=== PATIENT | male | born 1940 | race Caucasian/White ===

== ENCOUNTER → 2019-02-20 11:00 | Outpatient (CLI) | payer MEDICARE, OTHER, SELFPAY ==
[2019-02-20 12:25] LABS: Absolute Lymphocyte Count 1.28 X10^3/uL (0.83-4.51); Absolute Neutrophil Count 4.1 X10^3/uL (2.0-7.7); Basophil# 0.01 X10^3/uL; Basophil% 0.1 % (0-1); Eosinophil# 1.13 X10^3/uL; Eosinophils% 15.4 % (0-5); Hematocrit 45.5 % (40-54); Hemoglobin 15.6 g/dL (13.0-16.5); Lymphocyte # 1.28 X10^3/ul (4.0); Lymphocyte % 17.5 % (19-41); Mean Corp Hgb Conc 34.3 g/dL (32-36); Mean Corpuscular Hgb 29.4 pg (27.0-32.0); Mean Corpuscular Volume 85.8 fL (80-94); Mean Platelet Vol. 9.7 fl (6.2-12.0); Monocyte% 10.9 % (0-10); NRBC Flagged by Analyzer 0 % (0-5); Neutrophil # 4.07 X10^3/uL (2.7-7.7); Neutrophil % 55.7 % (47-70); Platelet Count 244 K/mm3 (150-450); RBC Distribution Width CV 12.8 % (11.6-14.6); RBC Distribution Width SD 39.8 fl (35.1-43.9); White Blood Count 7.3 K/mm3 (4.4-11.0)
[2019-02-20 13:09] LABS: Anion Gap 5 (5-15); BUN 18 mg/dL (7-18); BUN/Creat Ratio 16.5 RATIO (10-20); Calcium,Total 9.9 mg/dL (8.5-10.1); Chloride 105 mmol/L (98-107); Creatinine, Serum 1.09 mg/dL (0.70-1.30); EST Glomerular Filtration Rate 69 mL/min (>60); Est Glom Filt Rate - Afr Amer 84 mL/min (>60); Glucose 100 mg/dL (74-106); Sodium Level 139 mmol/L (136-145)
[2019-02-23 06:07] LABS: QNTFERON TB Mitogen Value > 10.00 IU/mL (.); QNTFERON TB Nil Value 0.02 IU/mL (.); QNTFERON TB1+ Ag Value 0.02 IU/mL (.); QNTFERON TB2+ Ag Value 0.02 IU/mL (.)
[2019-02-23 12:21] LABS: QNTIFERON TB Positive Criteria Negative (Negative)
== END ==
PROVIDERS: Referring Provider Dermatology Pediatric Dermatology; Visit Provider Dermatology Pediatric Dermatology
DX: L30.9 Dermatitis, unspecified (principal); D48.5 Neoplasm of uncertain behavior of skin; R58 Hemorrhage, not elsewhere classified; L53.8 Other specified erythematous conditions
CPT/HCPCS: 36415; 80048; 85025; 86480

== ENCOUNTER 2019-12-18 16:38 | Inpatient (IN) | payer MEDICARE, OTHER, SELFPAY ==
[2019-12-18 16:40] VITALS: BP 127/67; PULSE 90; RESP 16; TEMP 39.1; O2SAT 99; BMI 25.2
[2019-12-18 20:03] VITALS: BP 133/72; PULSE 81; RESP 15; O2SAT 97
--- NOTE | 2019-12-18 20:39 | CT_ITS ---
STUDY: CT BRAIN WITHOUT CONTRAST REASON FOR EXAM: Male, 79 years old. WEAKNESS/UNABLE TO GET OUT OF CHAIR RADIATION DOSAGE (If Supplied By Facility): CTDIvol = ( 44.99 ) mGy, DLP = ( 863.60 ) mGycm TECHNIQUE: Transaxial CT imaging of the brain was performed without administration of intravenous contrast material. Individualized dose optimization techniques were used for this CT. COMPARISON: No relevant priors. FINDINGS: Normal soft tissue structures. Normal calvarium. There is moderate cerebral atrophy with widening of the extra-axial spaces and ventricular dilatation. There are areas of decreased attenuation within the white matter tracts of the supratentorial brain, consistent with microvascular disease changes. Normal basal ganglia and thalami. Normal brainstem. Normal cerebellum. There is no intracranial hemorrhage. There are no findings of an acute ischemic infarction. Normal visualized paranasal sinuses. CT/Brain/Head without Contrast IMPRESSION: Chronic involutional changes of the brain. Electronically Signed: Jerod Marcial MD at 21:32 EDT , Service support ,
--- NOTE | 2019-12-18 20:39 | EKG12_ITS ---
Test Reason : LOWER EXTREMITY Blood Pressure : / mmHG Vent. Rate : 068 BPM Atrial Rate : 068 BPM P-R Int : 122 ms QRS Dur : 116 ms QT Int : 376 ms P-R-T Axes : -06 -61 043 degrees QTc Int : 399 ms Normal sinus rhythm Left axis deviation Incomplete left bundle branch block Abnormal ECG Confirmed by PAYTON GERARDO, SORAYA ([id number]), graphic editor ANJALI ESCOTO ([id number]) on 12/20/2019 12:38:55 PM Referred By: Lesly Judd Confirmed By:SORAYA CAIN MD
[2019-12-18 21:01] LABS: Absolute Lymphocyte Count 1.11 X10^3/uL (0.83-4.51); Absolute Neutrophil Count 13.7 X10^3/uL (2.0-7.7); Basophil# 0.02 X10^3/uL; Basophil% 0.1 % (0-1); Hemoglobin 13.7 g/dL (13.0-16.5); Lymphocyte # 1.11 X10^3/ul (4.0); Lymphocyte % 6.6 % (19-41); Mean Corp Hgb Conc 33.4 g/dL (32-36); Mean Corpuscular Hgb 28.4 pg (27.0-32.0); Mean Corpuscular Volume 85.1 fL (80-94); Mean Platelet Vol. 10.1 fl (6.2-12.0); Monocyte# 1.85 X10^3/uL; NRBC Flagged by Analyzer 0 % (0-5); Neutrophil # 13.72 X10^3/uL (2.7-7.7); Neutrophil % 81.7 % (47-70); POSITIVE DIFFERENTIAL YES; Platelet Count 282 K/mm3 (150-450); RBC Distribution Width CV 12.3 % (11.6-14.6); RBC Distribution Width SD 38.2 fl (35.1-43.9); Red Blood Count 4.82 M/mm3 (4.6-6.2); White Blood Count 16.8 K/mm3 (4.4-11.0)
[2019-12-18 21:04] LABS: Differential Indicated SCAN CRITERIA MET
--- NOTE | 2019-12-18 21:13 | RAD_ITS ---
STUDY: X-RAY CHEST REASON FOR EXAM: Male, 79 years old. WEAKNESS TECHNIQUE: Single AP portable view of the chest. COMPARISON: None. 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 There are ill-defined hazy infiltrates of the lower lung mcrae. There is no demonstrated pleural abnormality. Normal size heart. Normal mediastinum and manuel. Normal visualized pulmonary arteries. There are calcified plaques of the aortic arch. There are diffuse degenerative changes of the visualized thoracic spine. There are degenerative changes of the left shoulder joint. There is no demonstrated abnormality of the visualized soft tissue structures of the upper abdomen. RAD/Chest 1 View (Portable) IMPRESSION: Ill-defined hazy infiltrates of the lung bases. Calcified plaques of the aortic arch. Diffuse generative changes of the thoracic spine. Electronically Signed: Jerod Marcial MD at 21:39 EDT , Service support ,
[2019-12-18 21:19] LABS: ALB/GLOB Ratio 0.7 RATIO (0.9-2.4); AST(SGOT) 29 U/L (15-37); Alanine Aminotransfer ALT/SGPT 23 U/L (16-61); Albumin, Serum 3.1 g/dL (3.2-5.0); Alkaline Phosphatase 90 U/L (45-117); Anion Gap 7 (5-15); BUN 23 mg/dL (7-18); Chloride 102 mmol/L (98-107); Creatinine, Serum 1.28 mg/dL (0.70-1.30); EST Glomerular Filtration Rate 57 mL/min (>60); Est Glom Filt Rate - Afr Amer 69 mL/min (>60); Estimated Creatinine Clearance 47.53 ml/min; Globulin 4.7 g/dL (2.2-4.2); Glucose 117 mg/dL (74-106); Lactic Acid 1.6 mmol/L (0.4-1.9); Potassium 3.4 mmol/L (3.5-5.1); Protein, Total 7.8 g/dL (6.4-8.2); Sodium Level 137 mmol/L (136-145)
[2019-12-18 21:30] LABS: Differential Comment SCANNED
[2019-12-18 21:50] LABS: Bacteria 0 SEEN /hpf (None Seen); Mucous, Urine 0 SEEN /hpf (<or=2+); Squamous Epithelial Cells - UA 0 SEEN /hpf (0-5); White Blood Cells 0 SEEN /hpf (0-5)
[2019-12-18 21:52] LABS: Color, Urine Yellow (Yellow); Urine Clarity Sl Cloudy (Clear)
[2019-12-18 21:55] LABS: Glucose, Dipstick Normal (Normal); Ketone-Dipstick Negative (Negative); Leukocyte Esterase-Dipstick Negative /ul (Negative); Nitrite-Dipstick Negative (Negative); Occult Blood-Urine 50 /ul (Negative); Protein-Dipstick 30 mg/dl (Negative); Urine Bilirubin Dipstick Negative (Negative); Urine Urobilinogen 4 mg/dl (Normal)
[2019-12-18 21:56] LABS: Red Blood Cells-Urine 0-5 SEEN /hpf (0-5)
--- NOTE | 2019-12-18 23:15 | ED.VISSUMM ---
- ER Visit Summary Date of Service: 12/18/19 Chief Complaint: Fever and weakness History of Present Illness: The patient is a 79 M who presents with fever and weakness that began today. Family tried to get the patient up out of her chair today and he was unable to stand. Patient states his left leg feels weaker than his right. Patient states this is worse with attempted ambulation. Patient admits to subjective fevers at home. Family did not take patient's temperature. Patient admits to some dysuria. Patient denies any nausea or vomiting. Patient denies any chest pain or shortness of breath. Patient denies any cough. Physical Examination: Vital signs are stable. Patient is febrile here with a temperature 102.4. Patient is in no acute distress. Oral mucosa is pink and moist. Neck is supple. Trachea is midline. There is no JVD. Heart was regular rate and rhythm. Lungs were diminished in the bases bilaterally. There is adequate respiratory effort noted. Abdomen is soft. Bowel sounds are normal. There is no tenderness. Cranial nerves II through XII are intact. There are no focal motor or sensory deficits. Test Results: CBC shows a leukocytosis of 16.8. Basic metabolic profile showed a mild hypokalemia of 3.4. Urinalysis does not show any evidence of urinary tract infection. Lactate was normal at 1.6. Troponin was normal at less than 0.015. EKG showed normal sinus rhythm with a rate of 68. There are no acute ST or T wave changes. Chest x-ray shows ill-defined hazy infiltrates at the lung bases bilaterally. CT scan of the brain was obtained. There are chronic changes. These were interpreted by the radiologist and reviewed by myself. Emergency Department Course and Treatment: Patient was given Tylenol here. Patient was started on Rocephin and Zithromax. Blood cultures were obtained prior to antibiotics. Patient is agreeable for admission. COVID swab was obtained and is pending. Case was discussed with the hospitalist. She will admit the patient however she wants to wait until the COVID swab is returned to determine the appropriate place for the patient. Patient and family understood and were agreeable with the plan. All questions were answered. Disposition: Admit to hospital Impression: 1. Pneumonia 2. Leukocytosis This note was generated with [employer] software. It may contain incorrect words, spelling, and punctuation that were not noted in review of the chart prior to signing ED Disposition - Plan for ED Patient: Disposition: Acute Care Hospital [facility] Diagnosis: Pneumonia, Leukocytosis Referrals: Care Physician,No Primary [Primary Care Provider] -
[2019-12-18 23:21] VITALS: BP 119/58; PULSE 72; RESP 15; O2SAT 98
--- NOTE | 2019-12-18 23:30 | HP.PCM_ITS ---
History of Present Illness Date of Admission: 12/18/19 Chief Complaint: weakness The patient is a 79 year old M with no significant past medical history. He was admitted through the ED on 12/18/2019 with a complaint of weakness. Patient has been undergoing physical therapy for weakness at home. however states that he has recently become progressively weak and could not get out of his chair today. He admitted to some chills but denied any fever, blurred vision, lightheadedness or dizziness, chest pain, palpitations, burning with urination, nausea vomiting. He also denied any fever. His brought him into the hospital because his weakness has been getting worse. In the ED, vitals were significant for temperature of 102.4 Fahrenheit with blood pressure 119/58, pulse rate of 72 and respiratory rate of 15. He was saturating at 98% on room air. Chemistry was significant for potassium of 3.4 with total bilirubin of 1.1. Initial troponin was less than 0.015. CBC showed WBC of 16.8 and hemoglobin of 13.7 with platelets of 282. Chest x-ray showed ill-defined hazy opacities of the lung bases and calcified plaques of the aortic arch. CT of the brain showed chronic involutional changes of the brain. He has been admitted to be managed for sepsis due to community-acquired pneumonia. COVID test was negative. Past Medical History Allergies No Known Allergies Allergy (Verified 12/18/19 16:44) Home Medications: Ambulatory Orders Medication Instructions Recorded Aspirin 81 mg PO DAILY 12/19/19 Surgical History: no surgical history Psychiatric History: No pertinent psych hx Lives: Spouse/ Significant Other Smoking Status: Never smoker Tobacco Use: Non-smoker Alcohol: None Drugs: None - *Family History Maternal History Items: Cancer Paternal History Items: No pertinent history Review of Systems Constitutional: Reports: Chills, Malaise, Weakness, Fatigue. Denies: Anorexia, Fever, Weight Change Eyes: Denies: Blurred vision HEENT: Denies: Head Aches, Sinus Congestion, Sinus Drainage Cardiovascular: Denies: Chest Pain, Chest Pressure, Light Headedness, Orthopnea, Palpitations, Syncope Respiratory: Denies: Cough, Shortness of Breath, Shortness of breath at rest, Shortness of breath upon exertion, Sputum production, Wheezing Gastrointestinal: Denies: Abdominal Pain, Nausea, Vomiting Genitourinary: Denies: Dysuria Musculoskeletal: Denies: Joint Pain, Joint Tenderness Skin: Denies: Rash, Wounds Neurological: Denies: Numbness, Tingling, Focal weakness Psychiatric: Denies: Anxiety, Depression, Homicidal Ideations, Suicidal Ideations Hematologic/ Lymphatic: Denies: Easy Bruising, Easy Bleeding VTE Information - Inpt Only VTE Present on Admission: No VTE Pharm Prophylaxis ordered?: Yes Patient Problems: Active and Suspected Problems Pneumonia (Acute) Leukocytosis (Acute) - Physical Exam Vitals/I&O's: Vital Signs Temp Pulse Resp BP Pulse Ox 102.4 F H 72 15 119/58 L 98 12/18/19 16:40 12/18/19 23:21 12/18/19 23:21 12/18/19 23:21 12/18/19 23:21 Oxygen Delivery Method Room Air Weight: 176 lb 5.917 oz Body Mass Index (BMI) 25.2 General: Alert, Oriented x3, Cooperative, No apparent distress HEENT: Atraumatic, PERRLA, EOMI, Normocephalic Oral: Dry Mucosa Neck: Supple, No JVD, Negative Carotid Bruits Lungs: - - decreased breath sounds bibasally, no few crackles bibasally, no wheezes. Cardiovascular: Regular rate, Regular Rhythm, Normal S1, Normal S2, No murmurs Abdomen: Bowel Sounds Present, Soft, Non Tender, Non-Distended, No Hepato- splenomegaly Extremities: No clubbing, No cyanosis, No edema, Capillary Refill Less than 3 Seconds Skin: No rashes, No breakdown Musculoskeletal: No Tenderness to Palpation of Joints or Extremities Lymphatic: No Cervical, Supraclavicular, or Inguinal Adenopathy Neurological: Cranial nerves II-XII grossly intact, Neuro grossly intact, Motor Exam 5/5 strength throughout Psych/Mental Status: Normal Affect, Appropriate, Alert and oriented to time, place, person, mood and affect Laboratory Results 12/18/19 18:35: Urine Color Yellow, Urine Clarity Sl Cloudy, Urine pH 6.0, Ur Specific [place] 1.020, Urine Protein 30 H, Urine Glucose (UA) Normal, Urine Ketones Negative, Urine Occult Blood 50 H, Urine Nitrite Negative, Urine Bilirubin Negative, Urine Urobilinogen 4 H, Ur Leukocyte Esterase Negative, Urine RBC 0-5 SEEN, Urine WBC 0 SEEN, Ur Squamous Epith Cells 0 SEEN, Urine Bacteria 0 SEEN, Urine Mucus 0 SEEN 12/18/19 18:40: WBC 16.8 H, RBC 4.82, Hgb 13.7, Hct 41.0, MCV 85.1, MCH 28.4, MCHC 33.4, RDW Std Deviation 38.2, RDW Coeff of Colleen 12.3, Plt Count 282, MPV 10.1, Immature Gran % (Auto) 0.600, Neut % (Auto) 81.7 H, Lymph % (Auto) 6.6 L, [place] % (Auto) 11.0 H, Eos % (Auto) 0.0, Baso % (Auto) 0.1, Absolute Neuts (auto) 13.7 H, Absolute Lymphs (auto) 1.11, Nucleated RBC % 0, Differential Comment SCANNED, Diff Path Review September12/18/19 18:40: Sodium 137, Potassium 3.4 L, Chloride 102, Carbon Dioxide 28.0, Anion Gap 7, BUN 23 H, Creatinine 1.28, Estim Creat Clear Calc 47.53, Est GFR (MDRD) Af Amer 69, Est GFR (MDRD) Non-Af 57 L, BUN/Creatinine Ratio 18.0, Glucose 117 H, Calcium 10.0, Total Bilirubin 1.10 H, AST 29, ALT 23, Alkaline Phosphatase 90, Troponin I < 0.015, Total Protein 7.8, Albumin 3.1 L, Globulin 4.7 H, Albumin/Globulin Ratio 0.7 L 12/18/19 18:40: Lactic Acid 1.[address] 12/18/19 20:39 IMPRESSION: Chronic involutional changes of the brain. Electronically Signed: Jerod Marcial MD at 21:32 EDT , Service support , Chest X-Ray 12/18/19 21:13 IMPRESSION: Ill-defined hazy infiltrates of the lung bases. Calcified plaques of the aortic arch. Diffuse generative changes of the thoracic spine. Electronically Signed: Jerod Marcial MD at 21:39 EDT , Service support , Current Medications Azithromycin 500 mg/ Dextrose 255 mls @ 250 mls/hr IV X1 ONE Stop: 12/19/19 00:12 Ceftriaxone Sodium (Rocephin) 1 gm in 50 mls @ 100 mls/hr IV X1 ONE Stop: 12/18/19 23:40 Assessment/Plan All Active Problems Pneumonia (Acute) Leukocytosis (Acute) 79 y/o admitted with a complaint of weakness and found to have leucocytosis and bilateral hazy opacities on CXR 1. Sepsis due to community acquired pneumonia * SIRS criteria is 2/4-leukocytosis and fever. * Chest x-ray shows bilateral hazy opacities. * COVID was negative * Check urine for strep and Legionella. Check sputum culture if patient starts producing sputum. * Was started on IV ceftriaxone and azithromycin in the ED. Will continue. Tylenol as needed for fever. * Hydrate gently with IV fluid normal saline at 150 cc/h * 2. Community-acquired pneumonia: As under 1. 3. Hypokalemia: Potassium is 3.4. Will replace and monitor. 4. Debility: Has been having physical therapy at home. Consult PT/OT. Fall precautions. DVT prophylaxis: Lovenox CODE STATUS: Full code * Patient counseled extensively about different types of CODE STATUS including full code, DNR CCA and DNR CCA. Patient elects to be full code. * Total [id number]-ep-[id number] time 16 minutes. Inpatient E&M: 69276 Init Hosp L3 Procedures: 57416 Advncd Care Plan 30 Min
[2019-12-18] MEDS: Acetaminophen 500 MG Tablet 1000 MG PO (23:35)
[2019-12-18 23:37] VITALS: BP 117/55; PULSE 82; RESP 16; TEMP 38; O2SAT 96
[2019-12-19] VITALS (10 sets, daily range): BP systolic 95–126; BP diastolic 48–65; PULSE 60–83; RESP 13–23; TEMP 36.6–38.2; O2SAT 95–99; BMI 24.6; BMI 25.3
[2019-12-19] MEDS: Ceftriaxone 1 GM/50 ML BAG IV (00:18)
[2019-12-19 00:37] LABS: Probe Check PASS; Specimen Processing Control PASS
[2019-12-19] MEDS: 0.9% Normal Saline 1,000 ML 150 ML IV (03:13)
[2019-12-19 05:35] LABS: Absolute Lymphocyte Count 1.33 X10^3/uL (0.83-4.51); Absolute Neutrophil Count 13.7 X10^3/uL (2.0-7.7); Basophil# 0.02 X10^3/uL; Basophil% 0.1 % (0-1); Differential Indicated SCAN CRITERIA MET; Eosinophil# 0.01 X10^3/uL; Eosinophils% 0.1 % (0-5); Hematocrit 37.4 % (40-54); Hemoglobin 12.4 g/dL (13.0-16.5); Lymphocyte # 1.33 X10^3/ul (4.0); Lymphocyte % 7.9 % (19-41); Mean Corp Hgb Conc 33.2 g/dL (32-36); Mean Corpuscular Hgb 28.2 pg (27.0-32.0); Mean Corpuscular Volume 85.2 fL (80-94); Mean Platelet Vol. 8.8 fl (6.2-12.0); Monocyte# 1.77 X10^3/uL; Monocyte% 10.5 % (0-10); NRBC Flagged by Analyzer 0 % (0-5); Neutrophil # 13.65 X10^3/uL (2.7-7.7); POSITIVE DIFFERENTIAL YES; Platelet Count 265 K/mm3 (150-450); RBC Distribution Width CV 12.6 % (11.6-14.6); Red Blood Count 4.39 M/mm3 (4.6-6.2); White Blood Count 16.9 K/mm3 (4.4-11.0)
[2019-12-19 05:56] LABS: Differential Comment SCANNED
[2019-12-19 06:07] LABS: Anion Gap 4 (5-15); BUN 23 mg/dL (7-18); BUN/Creat Ratio 20.7 RATIO (10-20); Calcium,Total 9.1 mg/dL (8.5-10.1); Chloride 104 mmol/L (98-107); Creatinine, Serum 1.11 mg/dL (0.70-1.30); EST Glomerular Filtration Rate 68 mL/min (>60); Est Glom Filt Rate - Afr Amer 82 mL/min (>60); Glucose 108 mg/dL (74-106); Potassium 3.1 mmol/L (3.5-5.1); Sodium Level 137 mmol/L (136-145)
--- NOTE | 2019-12-19 07:50 | PCM.PROGNOTE ---
Patient Problems: Active and Suspected Problems Pneumonia (Acute) Leukocytosis (Acute) Subjective: Chief complaint: Follow-up after admission for sepsis due to community-acquired pneumonia. Patient seen and examined. No acute events overnight. Today, he is feeling better. Denied cough or sputum production. This morning, is afebrile, blood pressure is borderline but he is asymptomatic, pulse ox is 97% on room air. - Physical Exam Vitals/I&O's: Vital Signs Temp Pulse Resp BP Pulse Ox 98.3 F 64 18 95/48 L 97 12/19/19 02:25 12/19/19 04:21 12/19/19 02:25 12/19/19 02:25 12/19/19 02:25 Oxygen Delivery Method Room Air Weight: 171 lb 8 oz Body Mass Index (BMI) 24.6 Intake and Output for Last 24 Hours 12/17/19 12/18/19 12/19/19 23:59 23:59 23:59 Intake Total 785 / 785 Balance 785 / 785 General: Alert, Oriented x3, Cooperative HEENT: Atraumatic, PERRLA, EOMI, Normocephalic Oral: Moist Mucosa, No Gingival or Mucosal Lesions/ Ulcerations Neck: Supple, No JVD, Negative Carotid Bruits, Trachea Midline, Thyroid Normal Size and Texture Lungs: Clear to auscultation, Normal air movement, No rhonchi, No wheeze, No rales, Diminished Cardiovascular: Regular rate, Regular Rhythm, Normal S1, Normal S2, PMI Normal Abdomen: Bowel Sounds Present, Soft, Non Tender, Non-Distended, No Hepato-splenomegaly Extremities: No clubbing, No cyanosis, No edema Skin: No rashes, No breakdown Lymphatic: No Cervical, Supraclavicular, or Inguinal Adenopathy Neurological: Cranial nerves II-XII grossly intact, Neuro grossly intact Psych/Mental Status: Normal Affect, Appropriate, Alert and oriented to time, place, person, mood and affect Laboratory Results 12/18/19 18:35: Urine Color Yellow, Urine Clarity Sl Cloudy, Urine pH 6.0, Ur Specific [place] 1.020, Urine Protein 30 H, Urine Glucose (UA) Normal, Urine Ketones Negative, Urine Occult Blood 50 H, Urine Nitrite Negative, Urine Bilirubin Negative, Urine Urobilinogen 4 H, Ur Leukocyte Esterase Negative, Urine RBC 0-5 SEEN, Urine WBC 0 SEEN, Ur Squamous Epith Cells 0 SEEN, Urine Bacteria 0 SEEN, Urine Mucus 0 SEEN 12/18/19 18:40: WBC 16.8 H, RBC 4.82, Hgb 13.7, Hct 41.0, MCV 85.1, MCH 28.4, MCHC 33.4, RDW Std Deviation 38.2, RDW Coeff of Colleen 12.3, Plt Count 282, MPV 10.1, Immature Gran % (Auto) 0.600, Neut % (Auto) 81.7 H, Lymph % (Auto) 6.6 L, [place] % (Auto) 11.0 H, Eos % (Auto) 0.0, Baso % (Auto) 0.1, Absolute Neuts (auto) 13.7 H, Absolute Lymphs (auto) 1.11, Nucleated RBC % 0, Differential Comment SCANNED, Diff Path Review September12/18/19 18:40: Sodium 137, Potassium 3.4 L, Chloride 102, Carbon Dioxide 28.0, Anion Gap 7, BUN 23 H, Creatinine 1.28, Estim Creat Clear Calc 47.53, Est GFR (MDRD) Af Amer 69, Est GFR (MDRD) Non-Af 57 L, BUN/Creatinine Ratio 18.0, Glucose 117 H, Calcium 10.0, Total Bilirubin 1.10 H, AST 29, ALT 23, Alkaline Phosphatase 90, Troponin I < 0.015, Total Protein 7.8, Albumin 3.1 L, Globulin 4.7 H, Albumin/Globulin Ratio 0.7 L 12/18/19 18:40: Lactic Acid 1.6 12/18/19 23:35: COVID-19 (LI) Negative 12/19/19 05:28: WBC 16.9 H, RBC 4.39 L, Hgb 12.4 L, Hct 37.4 L, MCV 85.2, MCH 28.2, MCHC 33.2, RDW Std Deviation 39.0, RDW Coeff of [place]leen 12.6, Plt Count 265, MPV 8.8, Immature Gran % (Auto) 0.400, Neut % (Auto) 81.0 H, Lymph % (Auto) 7.9 L, [place] % (Auto) 10.5 H, Eos % (Auto) 0.1, Baso % (Auto) 0.1, Absolute Neuts (auto) 13.7 H, Absolute Lymphs (auto) 1.33, Nucleated RBC % 0, Differential Comment SCANNED, Diff Path Review September foll 12/19/19 05:28: Sodium 137, Potassium 3.1 L, Chloride 104, Carbon Dioxide 29.0, Anion Gap 4 L, BUN 23 H, Creatinine 1.11, Estim Creat Clear Calc 54.80, Est GFR (MDRD) Af Amer 82, Est GFR (MDRD) Non-Af 68, BUN/Creatinine Ratio 20.7 H, Glucose 108 H, Calcium 9.1 Clinical Impression(s) from Imaging Studies Brain CT 12/18/19 20:39 IMPRESSION: Chronic involutional changes of the brain. Electronically Signed: Jerod Marcial MD at 21:32 EDT , Service support , Chest X-Ray 12/18/19 21:13 IMPRESSION: Ill-defined hazy infiltrates of the lung bases. Calcified plaques of the aortic arch. Diffuse generative changes of the thoracic spine. Electronically Signed: Jerod Marcial MD at 21:39 EDT , Service support , Current Medications Acetaminophen (Tylenol) 650 mg PO Q6H PRN PRN PRN Reason: Pain Score 1-10/Temp > 100.7 F Aspirin (Aspirin, Baby) 81 mg PO DAILY JUSTIN Calamine/Phenol (Calmoseptine Ointment) 1 applic TOPICAL BID JUSTIN; Protocol Dextrose (D50w Syringe) 0 gm IV X1 PRN; Protocol PRN Reason: Hypoglycemia Glucagon () 1 mg IM .X1 PRN PRN Reason: Hypoglycemia Sodium Chloride () 1,000 mls @ 100 mls/hr IV .Q10H JUSTIN Stop: 12/19/19 12:28 Last Admin: 12/19/19 03:13 Dose: 150 mls/hr Documented by: Ceftriaxone Sodium 2 gm/ (Sodium Chloride) 50 mls @ 100 mls/hr IV Q24@2200 JUSTIN Azithromycin 500 mg/ Dextrose 255 mls @ 250 mls/hr IV Q24@2200 JUSTIN Sodium Chloride () 250 mls @ 15 mls/hr IV .[id number] PRN PRN Reason: Saline Flush Sodium Chloride () 250 mls @ 15 mls/hr IV .[id number] PRN PRN Reason: Additional IVPB Infusion Potassium Chloride () 10 meq in 100 mls @ 100 mls/hr IV BOLUS Q1H JUSTIN Stop: 12/19/19 11:29 Ondansetron HCl (Zofran) 4 mg IV Q8H PRN PRN PRN Reason: NAUSEA/VOMITING Oxycodone HCl (Oxyir) 10 mg PO Q4H PRN PRN PRN Reason: Pain Score 4-10/10 Sodium Chloride () 10 - 40 ml IV UD PRN PRN Reason: SALINE FLUSH Medical Necessity - Tobacco Use Smoking Status: Never smoker Tobacco Use: Non-smoker Assessment/Plan All Active Problems Pneumonia (Acute) Leukocytosis (Acute) This is an 79 years old male patient presented to the emergency room because of fever and weakness, found to have minimal infiltrate on lung bases consistent with pneumonia complicated by sepsis. #1 acute community-acquired pneumonia/sepsis: He is on IV Rocephin and Zithromax. Initially, he had a spike of fever, no fever this morning. He does have leukocytosis, WBC remain the most the same. EKG revealed no acute segment changes. Troponin was negative. CT scan brain showed no acute findings. Blood cultures pending. COVID-19 PCR was negative. Patient complains of right forearm pain due to muscle strain during physical therapy at home. Plan to continue same treatment, repeat CBC tomorrow morning, PT OT evaluation and treatment. #2 hypokalemia: Admission potassium was 3.4, still 3.1 today. Patient received potassium supplement this morning. Plan to check serum magnesium, repeat serum potassium tomorrow morning. #3 debility: PT OT evaluation and treatment. #4 DVT prophylaxis: Subcu Lovenox. This note was generated with [employer] dictation software. It may contain incorrect words, spelling, and punctuation that were not noted in checking the note before signing. Inpatient E&M: 60891 Subs Hosp L2
[2019-12-19 08:16] LABS: Magnesium 1.9 mg/dL (1.6-2.6)
[2019-12-19] MEDS: 0.9% Normal Saline 1,000 ML 50 ML IV (08:36)
[2019-12-19] MEDS: Potassium Chloride 10mEq/100mL 10 MEQ/100 ML IV.SOLN. 100 MEQ IV BOLUS ×4 (08:36→11:40)
[2019-12-19] MEDS: Aspirin 81 MG TAB.CHEW PO (08:36)
[2019-12-19] MEDS: Menthol/Lanolin/Calamine/Znox 113 GM Tube 1 APPLIC TOPICAL ×2 (09:40→22:36)
[2019-12-19] MEDS: Enoxaparin 40 MG/0.4 ML Syringe SC (09:41)
[2019-12-19 12:19] LABS: Pathologist Review Reviewed
[2019-12-19 12:23] LABS: Pathologist Review Reviewed
--- NOTE | 2019-12-19 13:51 | CASEMGMT ---
SKYLAR AMADO assessment: Face to Face with patient for initial transition planning/care coordination assessment. SKYLAR AMADO introduced self and role at [facility], pt voices understanding and consents to assessment at this time. Pt is sitting up in bed in no distress at this time. Pt is A/Ox4 at this time and answers all questions appropriately at this time. Care providers, pharmacy, and demographics verified at this time. Presentation: weakness, family unable to get pt out of chair-pt w/ left ankle weakness since fracture in Apr 2019-also c/o constipation Admitting dx: CAP PCP: Natan Swan [facility] Specialists: Pt states no specialists. Preferred Pharmacy: Pt states no preferred pharmacy and agrees to list [facility] retail pharmacy, just in case needed. Insurance: [facility] A/B, [employer] Prescription Benefit: Yes Living Will/HPOA: Pt states has a trust set up but unsure if he has LW/HPOA included in that at this time. LNOK: Clementine Chand, ; Ashutosh Chand, brother Living Arrangements: Pt states lives with in 1 story home with some steps and states no concerns at home at this time. Pt states has had some recent weakness but family has been assisting. Transportation: Pt states drives self and states no transportation concerns at this time. DME/HHC: Pt states has a cane, walker, and shower chair. Pt states no need for any further DME at this time. Pt states is currently going to OP therapy for weakness. Pt states no hx of HHC or SNF in the past. Pt states no concerns with going home at time of discharge. Pt states is retired. Pt states does not smoke cigarettes or drink ETOH. Pt states no further concerns/needs at this time. CM to follow for PT/OT evals and any further discharge planning/needs. Advised pt to ask for CM if any further questions/concerns/needs arise, voices understanding. Pt Goal: Home Plan: [place] SKYLAR AMADO
--- NOTE | 2019-12-19 16:02 | ECHOD_ITS ---
Reason For Study: MURMUR Procedure This was a 2D Doppler, Color Flow transthoracic echocardiogram. Exam performed portable in patient room. Left Ventricle Mildly dilated left ventricle. The estimated ejection fraction is 55 %. Stage 2 diastolic dysfunction. There is mild global hypokinesis of the left ventricle. Right Ventricle Normal size and thickness. Normal systolic function. Atria The left atrium is mildly enlarged. Normal right atrium. Normal atrial septum. Bubble contrast study negative for right to left interatrial shunt. Mitral Valve Mild diffuse mitral valve thickening. Tricuspid Valve Normal tricuspid valve. Mild to moderate (1-2+) tricuspid valve insufficiency. Right ventricular systolic pressure estimated to be 45 mmHg. Mild pulmonary hypertension. Aortic Valve Trisinus/trileaflet aortic valve. Mild diffuse aortic valve thickening. Pulmonic Valve Normal pulmonic valve. Trivial pulmonic valve insufficiency. Great Vessels Normal aortic root. Normal arch. Normal inferior vena cava. Inferior vena cava collapse with sniff. Pericardium/Pleural No pericardial effusion. Medication Performed a rapid injection of agitated mix of 9 cc saline and 1cc air to assess for atrial septal defect. MMode/2D Measurements & Calculations LVIDd: 4.7 cm IVSd: 1.1 cm Ao root diam: 3.5 cm LVIDs: 3.7 cm LVPWd: 0.97 cm RVDd: 3.2 cm FS: 20.9 % LAV(MOD-bp): 81.0 ml LA A4 area: 23.0 cm2 LA dimension(2D): 3.8 cm LAV(MOD-bp) Indexed: 41.5 ml/m2 LAV(MOD-sp2): 72.5 ml LAV(MOD-sp4): 78.6 ml RA A4 area: 15.6 cm2 Time Measurements MV dec time: 0.18 sec Doppler Measurements & Calculations MV E max joe: 97.0 cm/sec Lat Peak E' Joe: 10.2 cm/sec Med Peak E' Joe: 5.7 cm/sec MV A max joe: 111.3 cm/sec E/E' lat: 9.5 E/E' med: 17.1 MV E/A: 0.87 Ao V2 max: 133.5 cm/sec LV V1 max: 87.4 cm/sec PA V2 max: 85.3 cm/sec Ao max P.1 mmHg LV V1 max P.1 mmHg Ao V2 mean: 102.7 cm/sec LV V1 mean P.0 mmHg Ao mean P.5 mmHg LV V1 mean: 68.9 cm/sec Ao V2 VTI: 27.2 cm LV V1 VTI: 19.3 cm PI end-d joe: 108.3 cm/sec TR max joe: 312.9 cm/sec TR max P.2 mmHg Interpretation Summary Mildly dilated left ventricle. The estimated ejection fraction is 55 %. Stage 2 diastolic dysfunction. There is mild global hypokinesis of the left ventricle. The left atrium is mildly enlarged. Bubble contrast study negative for right to left interatrial shunt. Mild to moderate (1-2+) tricuspid valve insufficiency. Right ventricular systolic pressure estimated to be 45 mmHg. Mild pulmonary hypertension. There is no comparison study available. Ordering Physician: Warner Concepcion Referring Physician: Lesly Judd Performed By: Jasmina Devine RDCS, RVT
--- NOTE | 2019-12-19 16:04 | PCM.HP.ID ---
Problem List (1) Bacteremia Status: Acute Reason for Consult: bacteremia Consulted by: Dr. Cooley History of Present Illness: The patient is a 79 year old M who presented yesterday to the ED with several days of fever, weakness, not feeling well. Denies rash, aches, sick contacts, cough, or SOB. No chest pain. No change in taste or smell. Concern for pneumonia in ED, admitted on azithro/ceftriaxone. Now 1/2 bcx with GPC. Full ROS performed and neg except as noted above. - Medical History Surgical History: reviewed Allergies/Adverse Reactions: Allergies No Known Allergies Allergy (Verified 12/18/19 16:44) Home Medications: Ambulatory Orders Medication Instructions Recorded Aspirin 81 mg PO DAILY 12/19/19 - Social History Tobacco Use: non-smoker Vital Signs Temp Pulse Resp BP Pulse Ox 99.6 F H 83 18 126/65 H 95 12/19/19 14:00 12/19/19 14:00 12/19/19 14:00 12/19/19 14:00 12/19/19 14:00 Oxygen Delivery Method Room Air Weight: 77.791 kg Body Mass Index (BMI) 24.6 Microbiology Past 72 Hours 12/18/19 23:40 Blood Culture - Preliminary Blood Culture (Wb) - Left Forearm 12/18/19 18:40 Bacteria Detection (PCR) - Final Blood Culture (Wb) - Left Hand Staphylococcus aureus Blood Culture - Preliminary Staphylococcus aureus Laboratory Tests Past 24 Hrs 12/18/19 12/18/19 12/18/19 18:35 18:40 18:40 WBC 16.8 H RBC 4.82 Hgb 13.7 Hct 41.0 MCV 85.1 MCH 28.4 MCHC 33.4 RDW Std Deviation 38.2 RDW Coeff of Colleen 12.3 Plt Count 282 MPV 10.1 Immature Gran % (Auto) 0.600 Neut % (Auto) 81.7 H Lymph % (Auto) 6.6 L [place] % (Auto) 11.0 H Eos % (Auto) 0.0 Baso % (Auto) 0.1 Absolute Neuts (auto) 13.7 H Absolute Lymphs (auto) 1.11 Nucleated RBC % 0 Differential Comment SCANNED Diff Path Review Reviewed Sodium 137 Potassium 3.4 L Chloride 102 Carbon Dioxide 28.0 Anion Gap 7 BUN 23 H Creatinine 1.28 Estim Creat Clear Calc 47.53 Est GFR (MDRD) Af Amer 69 Est GFR (MDRD) Non-Af 57 L BUN/Creatinine Ratio 18.0 Glucose 117 H Lactic Acid Calcium 10.0 Magnesium Total Bilirubin 1.10 H AST 29 ALT 23 Alkaline Phosphatase 90 Troponin I < 0.015 Total Protein 7.8 Albumin 3.1 L Globulin 4.7 H Albumin/Globulin Ratio 0.7 L Urine Color Yellow Urine Clarity Sl Cloudy Urine pH 6.0 Ur Specific [place] 1.020 Urine Protein 30 H Urine Glucose (UA) Normal Urine Ketones Negative Urine Occult Blood 50 H Urine Nitrite Negative Urine Bilirubin Negative Urine Urobilinogen 4 H Ur Leukocyte Esterase Negative Urine RBC 0-5 SEEN Urine WBC 0 SEEN Ur Squamous Epith Cells 0 SEEN Urine Bacteria 0 SEEN Urine Mucus 0 SEEN COVID-19 (LI) 12/18/19 12/18/19 12/19/19 18:40 23:35 05:28 WBC 16.9 H RBC 4.39 L Hgb 12.4 L Hct 37.4 L MCV 85.2 MCH 28.2 MCHC 33.2 RDW Std Deviation 39.0 RDW Coeff of Colleen 12.6 Plt Count 265 MPV 8.8 Immature Gran % (Auto) 0.400 Neut % (Auto) 81.0 H Lymph % (Auto) 7.9 L [place] % (Auto) 10.5 H Eos % (Auto) 0.1 Baso % (Auto) 0.1 Absolute Neuts (auto) 13.7 H Absolute Lymphs (auto) 1.33 Nucleated RBC % 0 Differential Comment SCANNED Diff Path Review Reviewed Sodium Potassium Chloride Carbon Dioxide Anion Gap BUN Creatinine Estim Creat Clear Calc Est GFR (MDRD) Af Amer Est GFR (MDRD) Non-Af BUN/Creatinine Ratio Glucose Lactic Acid 1.6 Calcium Magnesium Total Bilirubin AST ALT Alkaline Phosphatase Troponin I Total Protein Albumin Globulin Albumin/Globulin Ratio Urine Color Urine Clarity Urine pH Ur Specific [place] Urine Protein Urine Glucose (UA) Urine Ketones Urine Occult Blood Urine Nitrite Urine Bilirubin Urine Urobilinogen Ur Leukocyte Esterase Urine RBC Urine WBC Ur Squamous Epith Cells Urine Bacteria Urine Mucus COVID-19 (LI) Negative 12/19/19 12/19/19 05:28 05:28 WBC RBC Hgb Hct MCV MCH MCHC RDW Std Deviation RDW Coeff of Colleen Plt Count MPV Immature Gran % (Auto) Neut % (Auto) Lymph % (Auto) [place] % (Auto) Eos % (Auto) Baso % (Auto) Absolute Neuts (auto) Absolute Lymphs (auto) Nucleated RBC % Differential Comment Diff Path Review Sodium 137 Potassium 3.1 L Chloride 104 Carbon Dioxide 29.0 Anion Gap 4 L BUN 23 H Creatinine 1.11 Estim Creat Clear Calc 54.80 Est GFR (MDRD) Af Amer 82 Est GFR (MDRD) Non-Af 68 BUN/Creatinine Ratio 20.7 H Glucose 108 H Lactic Acid Calcium 9.1 Magnesium 1.9 Total Bilirubin AST ALT Alkaline Phosphatase Troponin I Total Protein Albumin Globulin Albumin/Globulin Ratio Urine Color Urine Clarity Urine pH Ur Specific [place] Urine Protein Urine Glucose (UA) Urine Ketones Urine Occult Blood Urine Nitrite Urine Bilirubin Urine Urobilinogen Ur Leukocyte Esterase Urine RBC Urine WBC Ur Squamous Epith Cells Urine Bacteria Urine Mucus COVID-19 (LI) - Other Studies Radiology: [] reviewed Other Studies: [] Route of nutrition/ use of supplements: [] Nutritional Intake: [] IV Site: [] Gonsalves Catheter: [] - Physical Exam General: Cooperative, No apparent distress HEENT: Atraumatic, PERRLA, EOMI Neck: Supple, No Nodes Lungs: Clear to auscultation, Normal air movement Cardiovascular: Regular rate, Regular Rhythm Abdomen: Soft, Non Tender, Non-Distended Extremities: No edema Skin: No rashes IV Site: Peripheral Musculoskeletal: No Tenderness to Palpation of Joints or Extremities Neurological: Cranial nerves II-XII grossly intact - Assessment/Plan Antibiotics: [] Assessment/Plan: [] Active and Suspected Problems Pneumonia (Acute) Leukocytosis (Acute) Not clear if he has pneumonia. Single bcx with MSSA per pcr. Will get repeat bcx today. Check echo. Narrow abx to cefazolin. Will follow, thank you
[2019-12-19] MEDS: 0.9% Saline Lock 10 ML Syringe IV (22:26)
[2019-12-19] MEDS: Cefazolin 2 GM in 0.9% Normal Saline 100 ML IV (22:27)
[2019-12-20] VITALS (11 sets, daily range): BP systolic 115–151; BP diastolic 56–80; PULSE 60–122; RESP 18–27; TEMP 36.7–37.8; O2SAT 95–98
[2019-12-20] MEDS: Cefazolin 2 GM in 0.9% Normal Saline 100 ML IV ×3 (05:17→21:53)
[2019-12-20 05:36] LABS: Absolute Neutrophil Count 12.1 X10^3/uL (2.0-7.7); Basophil# 0.01 X10^3/uL; Basophil% 0.1 % (0-1); Eosinophil# 0.01 X10^3/uL; Eosinophils% 0.1 % (0-5); Hematocrit 34.2 % (40-54); Hemoglobin 11.6 g/dL (13.0-16.5); Lymphocyte % 7.5 % (19-41); Mean Corp Hgb Conc 33.9 g/dL (32-36); Mean Corpuscular Hgb 28.7 pg (27.0-32.0); Mean Corpuscular Volume 84.7 fL (80-94); Mean Platelet Vol. 9.4 fl (6.2-12.0); Monocyte# 1.29 X10^3/uL; Monocyte% 8.8 % (0-10); NRBC Flagged by Analyzer 0 % (0-5); Neutrophil # 12.14 X10^3/uL (2.7-7.7); Neutrophil % 82.8 % (47-70); Platelet Count 255 K/mm3 (150-450); RBC Distribution Width CV 12.3 % (11.6-14.6); RBC Distribution Width SD 37.9 fl (35.1-43.9); Red Blood Count 4.04 M/mm3 (4.6-6.2); White Blood Count 14.7 K/mm3 (4.4-11.0)
[2019-12-20 05:50] LABS: Anion Gap 5 (5-15); BUN 20 mg/dL (7-18); BUN/Creat Ratio 20.8 RATIO (10-20); Calcium,Total 8.9 mg/dL (8.5-10.1); Chloride 104 mmol/L (98-107); Creatinine, Serum 0.96 mg/dL (0.70-1.30); EST Glomerular Filtration Rate 80 mL/min (>60); Est Glom Filt Rate - Afr Amer 97 mL/min (>60); Estimated Creatinine Clearance 63.37 ml/min; Glucose 112 mg/dL (74-106); Potassium 3.2 mmol/L (3.5-5.1); Sodium Level 136 mmol/L (136-145)
--- NOTE | 2019-12-20 09:00 | CT_ITS ---
STUDY: CT BRAIN WITHOUT CONTRAST REASON FOR EXAM: Male, 79 years old. NEW RT SIDED WEAKNESS RADIATION DOSAGE (If Supplied By Facility): CTDIvol = ( 44.99 ) mGy, DLP = ( 829.85 ) mGycm TECHNIQUE: Transaxial CT imaging of the brain was performed without administration of intravenous contrast material. Individualized dose optimization techniques were used for this CT. COMPARISON: Comparison is made with prior study dated 12/18/2019. FINDINGS: Normal soft tissue structures. Normal calvarium. There is moderate cerebral atrophy with widening of the extra-axial spaces and ventricular dilatation. There are areas of decreased attenuation within the white matter tracts of the supratentorial brain, consistent with microvascular disease changes. Normal basal ganglia and thalami. Normal brainstem. Normal cerebellum. There is no intracranial hemorrhage. There are no findings of an acute ischemic infarction. Atherosclerotic calcification of the cavernous portions of the internal carotid arteries bilaterally. Normal visualized paranasal sinuses. CT/Brain/Head without Contrast IMPRESSION: Chronic involutional changes of the brain. Electronically Signed: Charles Barnes, at 10:02 EDT , Service support ,
--- NOTE | 2019-12-20 09:02 | PCM.PROGNOTE ---
Patient Problems: Active and Suspected Problems Pneumonia (Acute) Leukocytosis (Acute) Bacteremia (Acute) Subjective: Chief complaint: Follow-up after admission for presumed sepsis due to community-acquired pneumonia, found to have bacteremia. Patient seen and examined. No acute events overnight. Today, he complained on some cough with no sputum. Denied chest pain or shortness of breath. Denied fever or chills. He is still complaining of right arm pain and he attributed this to the injury that he had during physical therapy recently. Patient was not able to tell me if difficulty lifting his right arm is because of pain or weakness but he said both. He has been having spikes of low-grade fever, other vital signs are stable. - Physical Exam Vitals/I&O's: Vital Signs Temp Pulse Resp BP Pulse Ox 98.4 F 60 20 H 140/56 H 95 12/20/19 06:48 12/20/19 08:11 12/20/19 06:48 12/20/19 06:48 12/20/19 07:26 Oxygen Delivery Method Room Air Weight: 171 lb 8 oz Body Mass Index (BMI) 24.6 Intake and Output for Last 24 Hours 12/18/19 12/19/19 12/20/19 23:59 23:59 23:59 Intake Total 3469.5 / 3469.5 433.5 / 433.5 Balance 3469.5 / 3469.5 433.5 / 433.5 General: Alert, Oriented x3, Cooperative, No apparent distress HEENT: Atraumatic, PERRLA, EOMI, Normocephalic Oral: Moist Mucosa, No Gingival or Mucosal Lesions/ Ulcerations Neck: Supple, No JVD, Negative Carotid Bruits, Trachea Midline, Thyroid Normal Size and Texture Lungs: No wheeze, No rales, Diminished, Rhonchi, - - Diminished breath sounds bilateral, scattered rhonchi. Cardiovascular: Regular rate, Regular Rhythm, Normal S1, Normal S2, PMI Normal Abdomen: Bowel Sounds Present, Non Tender, Non-Distended, No Hepato-splenomegaly Extremities: No clubbing, No cyanosis, No edema Skin: No rashes, No breakdown Lymphatic: No Cervical, Supraclavicular, or Inguinal Adenopathy Neurological: Cranial nerves II-XII grossly intact, - - Weakness on the right upper extremity, power is 4 x 5. Unclear if this weakness is due to pain or actual weakness. Power on the right lower extremity is 4+ by 5. Psych/Mental Status: Normal Affect, Appropriate, Alert and oriented to time, place, person, mood and affect Microbiology Past 72 Hours 12/18/19 18:40 Blood Culture (Wb) - Left Hand Bacteria Detection (PCR) - Final Staphylococcus aureus 12/18/19 18:40 Blood Culture (Wb) - Left Hand Blood Culture - Preliminary Staphylococcus aureus 12/18/19 23:40 Blood Culture (Wb) - Left Forearm Blood Culture - Final Staphylococcus aureus Laboratory Results 12/18/19 18:40: Diff Path Review Reviewed 12/19/19 05:28: Diff Path Review Reviewed 12/20/19 05:14: WBC 14.7 H, RBC 4.04 L, Hgb 11.6 L, Hct 34.2 L, MCV 84.7, MCH 28.7, MCHC 33.9, RDW Std Deviation 37.9, RDW Coeff of Colleen 12.3, Plt Count 255, MPV 9.4, Immature Gran % (Auto) 0.700, Neut % (Auto) 82.8 H, Lymph % (Auto) 7.5 L, [place] % (Auto) 8.8, Eos % (Auto) 0.1, Baso % (Auto) 0.1, Absolute Neuts (auto) 12.1 H, Absolute Lymphs (auto) 1.10, Nucleated RBC % 0 12/20/19 05:14: Sodium 136, Potassium 3.2 L, Chloride 104, Carbon Dioxide 27.0, Anion Gap 5, BUN 20 H, Creatinine 0.96, Estim Creat Clear Calc 63.37, Est GFR (MDRD) Af Amer 97, Est GFR (MDRD) Non-Af 80, BUN/Creatinine Ratio 20.8 H, Glucose 112 H, Calcium 8.9 Current Medications Acetaminophen (Tylenol) 650 mg PO Q6H PRN PRN PRN Reason: Pain Score 1-10/Temp > 100.7 F Aspirin (Aspirin, Baby) 81 mg PO DAILY [facility] Last Admin: 12/19/19 08:36 Dose: 81 mg Documented by: Calamine/Phenol (Calmoseptine Ointment) 1 applic TOPICAL BID [facility]; Protocol Last Admin: 12/19/19 22:36 Dose: 1 applicatio Documented by: Dextrose (D50w Syringe) 0 gm IV X1 PRN; Protocol PRN Reason: Hypoglycemia Enoxaparin Sodium (Lovenox) 40 mg SC DAILY [facility] Last Admin: 12/19/19 09:41 Dose: 40 mg Documented by: Glucagon () 1 mg IM .X1 PRN PRN Reason: Hypoglycemia Azithromycin 500 mg/ Dextrose 255 mls @ 250 mls/hr IV Q24@2200 [facility] Last Infusion: 12/20/19 00:41 Dose: Infused Documented by: Sodium Chloride () 250 mls @ 15 mls/hr IV .[id number] PRN PRN Reason: Saline Flush Last Infusion: 12/20/19 06:01 Dose: 15 mls/hr Documented by: Sodium Chloride () 250 mls @ 15 mls/hr IV .[id number] PRN PRN Reason: Additional IVPB Infusion Cefazolin Sodium 2 gm/ Sodium (Chloride) 110 mls @ 150 mls/hr IV Q8 [facility] Last Infusion: 12/20/19 06:01 Dose: Infused Documented by: Ondansetron HCl (Zofran) 4 mg IV Q8H PRN PRN PRN Reason: NAUSEA/VOMITING Oxycodone HCl (Oxyir) 10 mg PO Q4H PRN PRN PRN Reason: Pain Score 4-10/10 Senna (Senokot) 1 tablet PO BID PRN PRN PRN Reason: Constipation Sodium Chloride () 10 - 40 ml IV UD PRN PRN Reason: SALINE FLUSH Last Admin: 12/19/19 22:26 Dose: 10 ml Documented by: Medical Necessity - Tobacco Use Smoking Status: Never smoker Tobacco Use: Non-smoker Assessment/Plan All Active Problems Pneumonia (Acute) Leukocytosis (Acute) Bacteremia (Acute) This is an 79 years old male patient presented to the emergency room because of fever and weakness, found to have minimal infiltrate on lung bases consistent with pneumonia complicated by sepsis. He was found staphylococcal bacteremia. #1 acute community-acquired pneumonia/sepsis: At this time, it is unclear if this is the only acute issue going on. Patient is on IV cefazolin and Zithromax. Has been spikes of low-grade fever, WBC is trending down. EKG revealed no acute segment changes. Troponin was negative. CT scan brain showed no acute findings. Blood cultures revealed staph aureus, final is pending. COVID-19 PCR was negative. Infectious disease consulted, recommended 2D echocardiogram. Plan: Continue same treatment, awaiting 2D echocardiogram, follow final blood culture. #2 staphylococcal bacteremia: Unclear source, I doubt this is due to pneumonia. Patient is on IV cefazolin and Zithromax as above. He has been spikes of low-grade fever, leukocytosis is improving. 2D echocardiogram ordered. Infectious disease on the case. Patient denies any other complaints, no abdominal pain, nausea vomiting, no urinary symptoms. Plan as above. #3 right upper extremity weakness/pain/right lower extremity weakness: Initially, patient stated that he had right upper arm injury during physical therapy recently and that is why he has not been able to move his right upper extremity. He was not able to tell if he cannot his move right arm because of pain or because of weakness but he said both. He does have some weakness on the right lower extremity as well. Stroke cannot be ruled out. Plan: CT scan brain without contrast. #4 hypokalemia: Patient received potassium supplement but his potassium is still low. Serum magnesium is normal. Plan to give 1 dose of K. Dur 60 mEq x 1. #5 debility: PT OT evaluation and treatment. #6 DVT prophylaxis: Subcu Lovenox. This note was generated with [employer] dictation software. It may contain incorrect words, spelling, and punctuation that were not noted in checking the note before signing. Inpatient E&M: 04203 Subs Hosp L3
[2019-12-20] MEDS: Aspirin 81 MG TAB.CHEW PO (10:49)
[2019-12-20] MEDS: Enoxaparin 40 MG/0.4 ML Syringe SC (10:49)
[2019-12-20] MEDS: Menthol/Lanolin/Calamine/Znox 113 GM Tube 1 APPLIC TOPICAL (10:49)
--- NOTE | 2019-12-20 10:52 | CASEMGMT ---
SW spoke with patient. Introduced self and role at [facility]. SW asked patient about his discharge plan. He does not think he can go home as his is not able to care for him right now. SW asked if he did go somewhere would he prefer to stay close to home. He said he would and that he prefers [facility] as his son is the boarding house manager. DAVID told him Medicare pays for days 1-20 at 100% and days 21-100 there is a daily co-pay which his secondary should cover all or part of his co-pay. DAVID told him SW will work on making the referral. DAVID called Melany who [facility] was instructed to now call for referrals to [facility] and left her a voice mail regarding referral. DAVID also faxed referral the the fax number we were given. Melany phone [phone] and fax [phone]. Await response. Plan: [facility] pending their acceptance and patient being medically ready. Radha HUTCHINS EQUIPMENT CLEANER AND TESTER
--- NOTE | 2019-12-20 13:19 | RAD_ITS ---
STUDY: X-RAY - RIGHT ELBOW REASON FOR EXAM: Male, 79 years old. FALL TECHNIQUE: 4 view(s) of the elbow. COMPARISON: None. FINDINGS: The study is limited as an adequate lateral view was not submitted. Normal visualized humerus, radius and ulna. Normal radiocapitellar and ulnotrochlear articulations. The soft tissue structures are unremarkable. RAD/Elbow 2 Views IMPRESSION: Limited study. There is no obvious fracture or dislocation. Repeat lateral view is recommended. Electronically Signed: Jerod Marcial MD at 16:49 EDT , Service support ,
--- NOTE | 2019-12-20 13:19 | RAD_ITS ---
STUDY: X-RAY - RIGHT HUMERUS REASON FOR EXAM: Male, 79 years old. FALL TECHNIQUE: 4 view(s) of the humerus. COMPARISON: None. FINDINGS: There is a slightly displaced oblique fracture with anterior and lateral angulation deformity of the proximal humeral shaft There is no demonstrated soft tissue abnormality. RAD/Humerus min 2 Views IMPRESSION: Slightly displaced oblique fracture with anterior and lateral angulation deformity of the proximal humeral shaft. Electronically Signed: Jerod Marcial MD at 16:50 EDT , Service support ,
--- NOTE | 2019-12-20 13:49 | CASEMGMT ---
Addendum entered by Radha Duran 12/20/19 14:32: Received call from Sandie at [facility] and they can take patient. Plan: [facility] when medically ready. Radha HUTCHINS PIEROGI MAKER Original Note: DAVID called Sandie at [facility] as SW could not get the referral fax to go through. She said [facility] is no longer doing referrals and to send it to her at [phone]. SW faxed referral to Sandie. Await response. Plan: d/c to [facility] pending their acceptance and patient being medically ready. Radha HUTCHINS PIEROGI MAKER
--- NOTE | 2019-12-20 13:52 | NURSING ---
pt asking to walk to BR, pt to chair with 2 assists, walker and gaitbelt around noon-offerred pt BSC and pt given assist to stand, pt unwilling/unable to place weight on legs and stand up so pt placed weight on right arm against walker and a loud pop was heard accompanied by a loud scream by the pt that he was in pain-4 assists in to lift and carry pt to bed (he was still unable/unwilling to bear weight on legs)-pt placed w/ HOB up 45 degrees and right arm on pillow-therapist feels she can feel crepitis and grinding in right upper arm-dr call notified-pt to x ray via bed
--- NOTE | 2019-12-20 15:56 | CASEMGMT ---
SW went to patient's room per his 's request. SW let her know SW spoke with patient this am and he would like to go to [facility]. She looked at patient and asked, That's where you want to go? and he told her yes as it is only 5 minutes from their home. She asked if there were any other reasons. DAVID reminded him he said his son is the linux devops engineer there. [facility] and she will pass along that [facility] is where he wants to go. She said they had [facility] on their list first and then [facility]. She will let us know tomorrow after their meeting. Radha HUTCHINS MSW
--- NOTE | 2019-12-20 16:25 | PCM.PN.ID ---
Patient Problems: Active and Suspected Problems Pneumonia (Acute) Leukocytosis (Acute) Bacteremia (Acute) Subjective: Was on a walker today and felt/heard a pop with severe pain in R upper arm. Had been having pain the shoulder prior to that. No fever. Overall feeling better today. at bedside. - Physical Exam Vitals/I&O's: Vital Signs Temp Pulse Resp BP Pulse Ox 98.0 F 122 H 18 134/71 H 95 12/20/19 12:35 12/20/19 13:35 12/20/19 12:35 12/20/19 12:35 12/20/19 12:35 Oxygen Delivery Method Room Air Weight: 77.791 kg Body Mass Index (BMI) 24.6 Intake and Output for Last 24 Hours 12/18/19 12/19/19 12/20/19 23:59 23:59 23:59 Intake Total 3469.5 / 3469.5 893.5 / 893.5 Balance 3469.5 / 3469.5 893.5 / 893.5 General: Alert, Cooperative, No apparent distress Lungs: Clear to auscultation, Normal air movement Cardiovascular: Regular rate, Regular Rhythm Abdomen: Soft, Non Tender, Non-Distended Extremities: - - tender focal swelling in R upper arm Skin: No rashes Microbiology Past 72 Hours 12/19/19 17:05 Blood Culture (Wb) - Left Hand Blood Culture - Preliminary 12/18/19 18:40 Blood Culture (Wb) - Left Hand Bacteria Detection (PCR) - Final Staphylococcus aureus 12/18/19 18:40 Blood Culture (Wb) - Left Hand Blood Culture - Preliminary Staphylococcus aureus 12/18/19 23:40 Blood Culture (Wb) - Left Forearm Blood Culture - Final Staphylococcus aureus Laboratory Results 12/20/19 05:14: WBC 14.7 H, RBC 4.04 L, Hgb 11.6 L, Hct 34.2 L, MCV 84.7, MCH 28.7, MCHC 33.9, RDW Std Deviation 37.9, RDW Coeff of Colleen 12.3, Plt Count 255, MPV 9.4, Immature Gran % (Auto) 0.700, Neut % (Auto) 82.8 H, Lymph % (Auto) 7.5 L, [place] % (Auto) 8.8, Eos % (Auto) 0.1, Baso % (Auto) 0.1, Absolute Neuts (auto) 12.1 H, Absolute Lymphs (auto) 1.10, Nucleated RBC % 0 12/20/19 05:14: Sodium 136, Potassium 3.2 L, Chloride 104, Carbon Dioxide 27.0, Anion Gap 5, BUN 20 H, Creatinine 0.96, Estim Creat Clear Calc 63.37, Est GFR (MDRD) Af Amer 97, Est GFR (MDRD) Non-Af 80, BUN/Creatinine Ratio 20.8 H, Glucose 112 H, Calcium 8.9 Current Medications Acetaminophen (Tylenol) 650 mg PO Q6H PRN PRN PRN Reason: Pain Score 1-10/Temp > 100.7 F Aspirin (Aspirin, Baby) 81 mg PO DAILY [facility] Last Admin: 12/20/19 10:49 Dose: 81 mg Documented by: Calamine/Phenol (Calmoseptine Ointment) 1 applic TOPICAL BID [facility]; Protocol Last Admin: 12/20/19 10:49 Dose: 1 applicatio Documented by: Dextrose (D50w Syringe) 0 gm IV X1 PRN; Protocol PRN Reason: Hypoglycemia Enoxaparin Sodium (Lovenox) 40 mg SC DAILY [facility] Last Admin: 12/20/19 10:49 Dose: 40 mg Documented by: Glucagon () 1 mg IM .X1 PRN PRN Reason: Hypoglycemia Sodium Chloride () 250 mls @ 15 mls/hr IV .[id number] PRN PRN Reason: Saline Flush Last Infusion: 12/20/19 06:01 Dose: 15 mls/hr Documented by: Sodium Chloride () 250 mls @ 15 mls/hr IV .[id number] PRN PRN Reason: Additional IVPB Infusion Cefazolin Sodium 2 gm/ Sodium (Chloride) 110 mls @ 150 mls/hr IV Q8 [facility] Last Infusion: 12/20/19 13:51 Dose: Infused Documented by: Ondansetron HCl (Zofran) 4 mg IV Q8H PRN PRN PRN Reason: NAUSEA/VOMITING Oxycodone HCl (Oxyir) 10 mg PO Q4H PRN PRN PRN Reason: Pain Score 4-10/10 Senna (Senokot) 1 tablet PO BID PRN PRN PRN Reason: Constipation Sodium Chloride () 10 - 40 ml IV UD PRN PRN Reason: SALINE FLUSH Last Admin: 12/19/19 22:26 Dose: 10 ml Documented by: Medical Necessity - Tobacco Use Smoking Status: Never smoker Tobacco Use: Non-smoker Route of nutrition/ use of supplements: [] Nutritional Intake: [] IV Site: [] Gonsalves Catheter: [] - Assessment/Plan Antibiotics: [] Assessment/Plan: [] Active and Suspected Problems Pneumonia (Acute) Leukocytosis (Acute) MSSA bacteremia. Now with humerus fracture, had been concerned for possible septic arthritis in that shoulder given his bacteremia and pain. Repeat bcx today. TTE with no veg. Feeling better overall. Cont cefazolin. Stop azithro. Recommend ortho consult. Will follow, d/w nursing
--- NOTE | 2019-12-20 19:39 | NURSING ---
shoulder immobilizer placed on right arm-cap refill wnl to finger right hand-r hand is warm to touch-ice pack placed over are of obvious deformity-pt declines pain meds offerred
[2019-12-20] MEDS: 0.9% Saline Lock 10 ML Syringe IV (21:44)
[2019-12-21] VITALS (11 sets, daily range): BP systolic 113–145; BP diastolic 67–70; PULSE 62–84; RESP 16–24; TEMP 36.3–36.9; O2SAT 96–98
[2019-12-21] MEDS: Menthol/Lanolin/Calamine/Znox 113 GM Tube 1 APPLIC TOPICAL ×3 (01:00→21:07)
[2019-12-21] MEDS: 0.9% Saline Lock 10 ML Syringe IV ×2 (06:29→21:06)
[2019-12-21] MEDS: Cefazolin 2 GM in 0.9% Normal Saline 100 ML IV ×3 (06:30→21:06)
--- NOTE | 2019-12-21 08:00 | MRI_ITS ---
STUDY: MRI UPPER EXTREMITY RIGHT HUMERUS WITH T WITHOUT CONTRAST REASON FOR EXAM: Pathologic fracture of the humerus. TECHNIQUE: Standardized fat and water weighted pulse sequences were obtained in all 3 orthogonal planes, pre-and post contrast administration. IV 15cc Dotarem was administered for the contrast portion of the examination. COMPARISON: Radiographs 12/20/2019. FINDINGS: Although is image degradation secondary to patient motion, there is still significant diagnostically useful information available from this examination. There is edema in the subcutis adipose space. There is edema in the musculature of the upper arm. There is fluid in the bicipital tendon sheath. There is a transverse fracture of the humeral diaphysis with foreshortening (T2 sagittal images 11-14). There is a confluent lesion in the proximal humeral diaphysis extending into the humeral head (inversion recovery coronal images 8-23) measuring 7.6 cm in length with contrast enhancement at the periphery (postcontrast T1 sagittal images 16-19). There is an infiltrative lesion of the mid and distal humeral diaphysis (inversion recovery coronal images 11-15) with contrast enhancement (postcontrast T1 sagittal images 13-15). MRI/Upper Ext No Joint W/WO Cont IMPRESSION: Pathologic fracture with humeral lesions. Edema in the musculature of the upper arm. Electronically Signed: Valentín Ramirez MD at 11:56 EDT Tel , Service support ,
--- NOTE | 2019-12-21 10:18 | CASEMGMT ---
ADVID spoke with patient's and they decided on [facility]. SW let her know they can take him when he is ready. Plan: [facility] when patient is medically ready. Radha HUTCHINS MSW
--- NOTE | 2019-12-21 11:53 | PCM.CONS.GEN ---
Reason for Consult Date of Consultation: 12/21/19 History of Present Illness: The patient is a 79 year old M who had bumped his right humerus against the mirror of his car about a month ago there was bruising at the time however it was not thought to be much more than that. He was doing fine until working in physical therapy yesterday and felt a snap in his right upper extremity x-rays were taken which did demonstrate a oblique fracture of the mid shaft of the humerus with concerning cystic changes in the corresponding bone. The patient is difficult to arouse but with sternal rub I can get him to stay awake for a few minutes to talk and then he falls back asleep the is present in the room who states he has not had any changes in weight or appetite although there was some questionable subjective fevers and chills recently. He denies and she denies any history of any tumor or cancer. Past Medical History Allergies No Known Allergies Allergy (Verified 12/18/19 16:44) Home Medications: Ambulatory Orders Medication Instructions Recorded Aspirin 81 mg PO DAILY 12/19/19 Surgical History: no surgical history Psychiatric History: No pertinent psych hx Lives: Spouse/ Significant Other Smoking Status: Never smoker Tobacco Use: Non-smoker Alcohol: None Drugs: None - *Family History Maternal History Items: Cancer Paternal History Items: No pertinent history Patient Problems: Active and Suspected Problems Pneumonia (Acute) Leukocytosis (Acute) Bacteremia (Acute) - Physical Exam Vitals/I&O's: Vital Signs Temp Pulse Resp BP Pulse Ox 98.2 F 66 24 H 125/70 H 96 12/21/19 03:53 12/21/19 07:00 12/21/19 03:53 12/21/19 03:53 12/21/19 11:35 Oxygen Delivery Method Room Air Weight: 171 lb 8 oz Body Mass Index (BMI) 24.6 Intake and Output for Last 24 Hours 12/19/19 12/20/19 12/21/19 23:59 23:59 23:59 Intake Total 3469.5 / 3469.5 1373.25 / 1373.25 156.00 / 156.00 Balance 3469.5 / 3469.5 1373.25 / 1373.25 156.00 / 156.00 General: Cooperative, No apparent distress, Confused, Disoriented, Lethargic Extremities: - - Examination of right upper extremity demonstrates deformity at the fracture site ecchymosis there is no erythema there is no joint effusion in the shoulder the compartments are soft and compressible he has intact sensation over the axillary nerve and the remainder of the arm he has no gross motor or sensory deficits to radial median or ulnar nerve distally palpable radial pulses Microbiology Past 72 Hours 12/19/19 17:05 Blood Culture (Wb) - Left Hand Blood Culture - Final Staphylococcus aureus 12/18/19 18:40 Blood Culture (Wb) - Left Hand Bacteria Detection (PCR) - Final Staphylococcus aureus 12/18/19 18:40 Blood Culture (Wb) - Left Hand Blood Culture - Final Staphylococcus aureus 12/18/19 23:40 Blood Culture (Wb) - Left Forearm Blood Culture - Final Staphylococcus aureus Current Medications Acetaminophen (Tylenol) 650 mg PO Q6H PRN PRN PRN Reason: Pain Score 1-10/Temp > 100.7 F Aspirin (Aspirin, Baby) 81 mg PO DAILY [facility] Last Admin: 12/20/19 10:49 Dose: 81 mg Documented by: Calamine/Phenol (Calmoseptine Ointment) 1 applic TOPICAL BID [facility]; Protocol Last Admin: 12/21/19 01:00 Dose: 1 applicatio Documented by: Dextrose (D50w Syringe) 0 gm IV X1 PRN; Protocol PRN Reason: Hypoglycemia Enoxaparin Sodium (Lovenox) 40 mg SC DAILY [facility] Last Admin: 12/20/19 10:49 Dose: 40 mg Documented by: Glucagon () 1 mg IM .X1 PRN PRN Reason: Hypoglycemia Sodium Chloride () 250 mls @ 15 mls/hr IV .[id number] PRN PRN Reason: Saline Flush Last Infusion: 12/21/19 06:30 Dose: 0 mls/hr Documented by: Sodium Chloride () 250 mls @ 15 mls/hr IV .[id number] PRN PRN Reason: Additional IVPB Infusion Cefazolin Sodium 2 gm/ Sodium (Chloride) 110 mls @ 150 mls/hr IV Q8 JUSTIN Last Infusion: 12/21/19 08:03 Dose: Infused Documented by: Ondansetron HCl (Zofran) 4 mg IV Q8H PRN PRN PRN Reason: NAUSEA/VOMITING Oxycodone HCl (Oxyir) 10 mg PO Q4H PRN PRN PRN Reason: Pain Score 4-10/10 Senna (Senokot) 1 tablet PO BID PRN PRN PRN Reason: Constipation Sodium Chloride () 10 - 40 ml IV UD PRN PRN Reason: SALINE FLUSH Last Admin: 12/21/19 06:29 Dose: 10 ml Documented by: Assessment/Plan All Active Problems Pneumonia (Acute) Leukocytosis (Acute) Bacteremia (Acute) Right short oblique humeral shaft pathologic fracture. mri done and discussed with reading radiologist concern for infiltrative bone mass Recommend immobilization to right upper extremity will need further work-up and possible biopsy as no primary has ever been identified Therefore will need orthopedic oncology consultation for definitive treatment diagnosis and treatment. No sign of abscess or septic arthritis of shoulder.
[2019-12-21] MEDS: Aspirin 81 MG TAB.CHEW PO (11:57)
[2019-12-21] MEDS: Enoxaparin 40 MG/0.4 ML Syringe SC (11:57)
--- NOTE | 2019-12-21 17:06 | CT_ITS ---
STUDY: CT ABDOMEN AND PELVIS WITH CONTRAST REASON FOR EXAM: Male, 79 years old. INCREASED WEAKNESS,ELEVATED WBC,PNEUMONIA,RT HUMERAL PATHOLOGICAL FRACTURE RADIATION DOSAGE (If Supplied By Facility): CTDIvol = ( 30.82 ) mGy, DLP = ( 2006.18 ) mGycm TECHNIQUE: Transaxial images were obtained from the dome of the diaphragm to the symphysis pubis without oral contrast. IV 100mL Isovue-300 was administered. Sagittal and coronal images were reconstructed. Individualized dose optimization techniques were used for this CT. COMPARISON: None. FINDINGS: Chest findings are dictated separately. Normal liver. Normal gallbladder and extrahepatic biliary system. There are multiple benign calcified granulomata of the spleen. Normal pancreas. Normal bilateral adrenal glands. Normal right kidney. Normal left kidney. Normal visualized stomach. Normal small intestine. There is a large amount of stool in the rectal vault. The appendix is visualized and appears normal. There are calcified plaques of the abdominal aorta. Normal inferior vena cava. Normal retroperitoneum. Normal urinary bladder. The prostate is slightly lobular in contour and demonstrates calcifications. There are bilateral fat-containing inguinal hernias. There is a 2.9 x 1.8 cm loculated fluid collection on the left lateral to the bladder there are diffuse degenerative changes of the visualized thoracolumbar spine. There are mild old compression deformities of T10 and L4. No lytic or blastic osseous changes are seen. CT/Abdomen/Pelvis WITH Contrast IMPRESSION: 1. Calcified granulomas of the spleen. 2. The prostate is slightly lobular in contour and demonstrates calcifications. 3. Bilateral fat-containing inguinal hernias. 4. Small loculated fluid collection measuring 2.9 x 1.8 cm on the left adjacent to the bladder which is of unknown etiology or significance. 5. Mild old compression from 80s of T10 and L4. No lytic or blastic osseous changes are noted. 6. No retroperitoneal or deep pelvic adenopathy is noted. Electronically Signed: Jerod Marcial MD at 20:47 EDT , Service support ,
--- NOTE | 2019-12-21 17:06 | CT_ITS ---
STUDY: CT CHEST WITH CONTRAST REASON FOR EXAM: Male, 79 years old. INCREASED WEAKNESS,ELEVATED WBC,PNEUMONIA,RT HUMERAL PATHOLOGICAL FRACTURE RADIATION DOSAGE (If Supplied By Facility): CTDIvol = ( 30.82 ) mGy, DLP = ( 2006.18 ) mGycm TECHNIQUE: Transaxial imaging was performed following intravenous administration of IV 100mL Isovue-300. Individualized dose optimization techniques were used for this CT. COMPARISON: None. FINDINGS: There is a calcified granuloma of the left lingula abutting the major fissure. There is minimal right basilar pleural effusion and/or pleural reaction. The heart size is within normal limits. There is no pericardial effusion. Coronary arterial calcifications are seen. Normal mediastinum. There are calcified left hilar nodes. There is mild dilatation of the main pulmonary artery measuring up to 3.1 cm. There are calcified plaques of the thoracic aorta. There is demonstrated a comminuted fracture of the proximal right humeral shaft. There are small lucent cortical foci of the visualized humeral shaft. Cystic foci of the right humeral head are also noted. There are diffuse degenerative changes of the visualized thoracolumbar spine. Abdominal findings are dictated separately. CT/Chest WITH Contrast IMPRESSION: Calcified left lingular granuloma. There is no evidence of infiltrate, atelectasis, or pulmonary mass or nodule. Minimal right basilar pleural effusion and/or pleural reaction. Calcified left hilar nodes. Mild dilatation of the main pulmonary artery measuring up to 3.1 cm. Comminuted fracture the proximal right humeral shaft. Small lucent cortical foci the visualized humeral shaft. Cystic foci of the right humeral head. Electronically Signed: Jerod Marcial MD at 20:36 EDT , Service support ,
--- NOTE | 2019-12-21 17:10 | PN.ID_ITS ---
Patient Problems: Active and Suspected Problems Pneumonia (Acute) Leukocytosis (Acute) Bacteremia (Acute) Subjective: Arm in sling, feeling better, no fever - Physical Exam Vitals/I&O's: Vital Signs Temp Pulse Resp BP Pulse Ox 97.4 F L 70 18 132/70 H 96 12/21/19 09:53 12/21/19 15:00 12/21/19 09:53 12/21/19 09:53 12/21/19 11:35 Oxygen Delivery Method Room Air Weight: 77.791 kg Body Mass Index (BMI) 24.6 Intake and Output for Last 24 Hours 12/19/19 12/20/19 12/21/19 23:59 23:59 23:59 Intake Total 3469.5 / 3469.5 1373.25 / 1373.25 326.00 / 326.00 Balance 3469.5 / 3469.5 1373.25 / 1373.25 326.00 / 326.00 General: Alert, Cooperative, No apparent distress Lungs: Clear to auscultation, Normal air movement Cardiovascular: Regular rate, Regular Rhythm Abdomen: Soft, Non Tender, Non-Distended Skin: No rashes Microbiology Past 72 Hours 12/20/19 16:00 Blood Culture (Wb) - Anticubital Left Blood Culture - Preliminary 12/19/19 17:05 Blood Culture (Wb) - Left Hand Blood Culture - Final Staphylococcus aureus 12/18/19 18:40 Blood Culture (Wb) - Left Hand Bacteria Detection (PCR) - Fi nal Staphylococcus aureus 12/18/19 18:40 Blood Culture (Wb) - Left Hand Blood Culture - Final Staphylococcus aureus 12/18/19 23:40 Blood Culture (Wb) - Left Forearm Blood Culture - Final Staphylococcus aureus Current Medications Acetaminophen (Tylenol) 650 mg PO Q6H PRN PRN PRN Reason: Pain Score 1-10/Temp > 100.7 F Aspirin (Aspirin, Baby) 81 mg PO DAILY [facility] Last Admin: 12/21/19 11:57 Dose: 81 mg Documented by: Calamine/Phenol (Calmoseptine Ointment) 1 applic TOPICAL BID [facility]; Protocol Last Admin: 12/21/19 11:57 Dose: 1 applicatio Documented by: Dextrose (D50w Syringe) 0 gm IV X1 PRN; Protocol PRN Reason: Hypoglycemia Enoxaparin Sodium (Lovenox) 40 mg SC DAILY [facility] Last Admin: 12/21/19 11:57 Dose: 40 mg Documented by: Glucagon () 1 mg IM .X1 PRN PRN Reason: Hypoglycemia Sodium Chloride () 250 mls @ 15 mls/hr IV .[id number] PRN PRN Reason: Saline Flush Last Infusion: 12/21/19 06:30 Dose: 0 mls/hr Documented by: Sodium Chloride () 250 mls @ 15 mls/hr IV .[id number] PRN PRN Reason: Additional IVPB Infusion Cefazolin Sodium 2 gm/ Sodium (Chloride) 110 mls @ 150 mls/hr IV Q8 [facility] Last Infusion: 12/21/19 15:02 Dose: Infused Documented by: Ondansetron HCl (Zofran) 4 mg IV Q8H PRN PRN PRN Reason: NAUSEA/VOMITING Oxycodone HCl (Oxyir) 10 mg PO Q4H PRN PRN PRN Reason: Pain Score 4-10/10 Senna (Senokot) 1 tablet PO BID PRN PRN PRN Reason: Constipation Sodium Chloride () 10 - 40 ml IV UD PRN PRN Reason: SALINE FLUSH Last Admin: 12/21/19 06:29 Dose: 10 ml Documented by: Medical Necessity - Tobacco Use Smoking Status: Never smoker Tobacco Use: Non-smoker Route of nutrition/ use of supplements: [] Nutritional Intake: [] IV Site: [] Gonsalves Catheter: [] - Assessment/Plan Antibiotics: [] Assessment/Plan: [] Active and Suspected Problems Pneumonia (Acute) Leukocytosis (Acute) MSSA bacteremia. Now with humerus fracture, had been concerned for possible septic arthritis in that shoulder given his bacteremia and pain. Repeat bcx today. TTE with no veg. Feeling better overall. Cont cefazolin. Seen by ortho, MRI with possible pathologic fracture. Will order CT chest/abd/pelvis to look for possible primary. Will follow
--- NOTE | 2019-12-21 19:03 | PN_ITS ---
Patient Problems: Active and Suspected Problems Pneumonia (Acute) Leukocytosis (Acute) Bacteremia (Acute) Subjective: Feels better today, states that the pain in his right arm is a bit better and that he is breathing little bit better. Vitals/I&O's: Vital Signs Temp Pulse Resp BP Pulse Ox 98.3 F 76 18 113/67 97 12/21/19 15:50 12/21/19 15:50 12/21/19 15:50 12/21/19 15:50 12/21/19 15:50 Oxygen Delivery Method Room Air Weight: 171 lb 8 oz Body Mass Index (BMI) 24.6 Intake and Output for Last 24 Hours 12/19/19 12/20/19 12/21/19 23:59 23:59 23:59 Intake Total 3469.5 / 3469.5 1373.25 / 1373.25 566.00 / 566.00 Output Total 175 / 175 Balance 3469.5 / 3469.5 1373.25 / 1373.25 391.00 / 391.00 General: Alert, Oriented x3, Cooperative, No apparent distress HEENT: Atraumatic, PERRLA, EOMI, Normocephalic Oral: Moist Mucosa Neck: Supple, No JVD Lungs: Clear to auscultation, Normal air movement, No rhonchi, No wheeze, No rales, Diminished Cardiovascular: Regular rate, Regular Rhythm, Normal S1, Normal S2, No murmurs Abdomen: Soft, Non Tender, Non-Distended, No Hepato-splenomegaly Extremities: No edema, Capillary Refill Less than 3 Seconds Skin: No rashes, No breakdown Musculoskeletal: Tenderness - Mild tenderness to palpation his right upper extremity, currently in a sling Neurological: Neuro grossly intact, Sensory exam intact to light touch and pain Psych/Mental Status: Normal Affect, Appropriate Microbiology Past 72 Hours 12/20/19 16:00 Blood Culture (Wb) - Anticubital Left Blood Culture - Preliminary 12/19/19 17:05 Blood Culture (Wb) - Left Hand Blood Culture - Final Staphylococcus aureus 12/18/19 18:40 Blood Culture (Wb) - Left Hand Bacteria Detection (PCR) - Final Staphylococcus aureus 12/18/19 18:40 Blood Culture (Wb) - Left Hand Blood Culture - Final Staphylococcus aureus 12/18/19 23:40 Blood Culture (Wb) - Left Forearm Blood Culture - Final Staphylococcus aureus Current Medications Acetaminophen (Tylenol) 650 mg PO Q6H PRN PRN PRN Reason: Pain Score 1-10/Temp > 100.7 F Aspirin (Aspirin, Baby) 81 mg PO DAILY [facility] Last Admin: 12/21/19 11:57 Dose: 81 mg Documented by: Calamine/Phenol (Calmoseptine Ointment) 1 applic TOPICAL BID [facility]; Protocol Last Admin: 12/21/19 11:57 Dose: 1 applicatio Documented by: Dextrose (D50w Syringe) 0 gm IV X1 PRN; Protocol PRN Reason: Hypoglycemia Enoxaparin Sodium (Lovenox) 40 mg SC DAILY [facility] Last Admin: 12/21/19 11:57 Dose: 40 mg Documented by: Glucagon () 1 mg IM .X1 PRN PRN Reason: Hypoglycemia Sodium Chloride () 250 mls @ 15 mls/hr IV .[id number] PRN PRN Reason: Saline Flush Last Infusion: 12/21/19 06:30 Dose: 0 mls/hr Documented by: Sodium Chloride () 250 mls @ 15 mls/hr IV .[id number] PRN PRN Reason: Additional IVPB Infusion Cefazolin Sodium 2 gm/ Sodium (Chloride) 110 mls @ 150 mls/hr IV Q8 [facility] Last Infusion: 12/21/19 15:02 Dose: Infused Documented by: Ondansetron HCl (Zofran) 4 mg IV Q8H PRN PRN PRN Reason: NAUSEA/VOMITING Oxycodone HCl (Oxyir) 10 mg PO Q4H PRN PRN PRN Reason: Pain Score 4-10/10 Senna (Senokot) 1 tablet PO BID PRN PRN PRN Reason: Constipation Sodium Chloride () 10 - 40 ml IV UD PRN PRN Reason: SALINE FLUSH Last Admin: 12/21/19 06:29 Dose: 10 ml Documented by: STROKE Vital Signs/Narrative: Vital Signs Temp Pulse Resp BP Pulse Ox 12/21/19 15:50 98.3 F 76 18 113/67 97 Medical Necessity - Tobacco Use Smoking Status: Never smoker Tobacco Use: Non-smoker Assessment/Plan All Active Problems Pneumonia (Acute) Leukocytosis (Acute) Bacteremia (Acute) 1. Sepsis secondary to community-acquired pneumonia from MSSA with MSSA bacteremia -Continue with the Ancef, echo for vegetations was negative, his EF is 55% with stage II diastolic dysfunction -Appreciate infectious disease assistance -Art blood cultures today, the ones from yesterday are preliminarily growing gr am-positive cocci 2. Pathologic fracture of his right humerus with right upper extremity weakness and pain -Appreciate orthopedic assistance, patient fractured his humerus by hitting it on a side mirror of a car -We will obtain a CT scan of his chest abdomen and pelvis to evaluate for possible primary -We will continue with immobilization with a sling and he will need to follow-up with orthopedic oncology as an outpatient well as medical oncology -Continue with PT and OT evaluation for possible placement DVT: Lovenox Inpatient E&M: [id number] Subs Hosp L2
[2019-12-22] VITALS (11 sets, daily range): BP systolic 110–123; BP diastolic 61–70; PULSE 66–77; RESP 16–18; TEMP 36.8–37.6; O2SAT 96–97
[2019-12-22] MEDS: Cefazolin 2 GM in 0.9% Normal Saline 100 ML IV ×3 (05:40→21:12)
[2019-12-22 06:17] LABS: Absolute Lymphocyte Count 1.22 X10^3/uL (0.83-4.51); Absolute Neutrophil Count 9.2 X10^3/uL (2.0-7.7); Basophil# 0.02 X10^3/uL; Basophil% 0.2 % (0-1); Eosinophil# 0.05 X10^3/uL; Eosinophils% 0.4 % (0-5); Hematocrit 35.8 % (40-54); Lymphocyte # 1.22 X10^3/ul (4.0); Lymphocyte % 10.3 % (19-41); Mean Corp Hgb Conc 33.5 g/dL (32-36); Mean Corpuscular Hgb 28.2 pg (27.0-32.0); Mean Platelet Vol. 9.8 fl (6.2-12.0); Monocyte# 1.24 X10^3/uL; Monocyte% 10.5 % (0-10); NRBC Flagged by Analyzer 0 % (0-5); Neutrophil # 9.19 X10^3/uL (2.7-7.7); Neutrophil % 77.9 % (47-70); Platelet Count 330 K/mm3 (150-450); RBC Distribution Width CV 12.5 % (11.6-14.6); Red Blood Count 4.26 M/mm3 (4.6-6.2); White Blood Count 11.8 K/mm3 (4.4-11.0)
[2019-12-22 06:48] LABS: Anion Gap 3 (5-15); BUN 23 mg/dL (7-18); BUN/Creat Ratio 26.5 RATIO (10-20); Calcium,Total 9.3 mg/dL (8.5-10.1); Chloride 106 mmol/L (98-107); Creatinine, Serum 0.87 mg/dL (0.70-1.30); EST Glomerular Filtration Rate 90 mL/min (>60); Est Glom Filt Rate - Afr Amer 109 mL/min (>60); Estimated Creatinine Clearance 69.92 ml/min; Glucose 117 mg/dL (74-106); Magnesium 2.3 mg/dL (1.6-2.6); Potassium 3.9 mmol/L (3.5-5.1); Sodium Level 137 mmol/L (136-145)
--- NOTE | 2019-12-22 08:48 | PN_ITS ---
Patient Problems: Active and Suspected Problems Pneumonia (Acute) Leukocytosis (Acute) Bacteremia (Acute) Subjective: Doing well, no issues overnight. Arm is feeling better on the right. Vitals/I&O's: Vital Signs Temp Pulse Resp BP Pulse Ox 98.3 F 66 16 113/61 96 12/22/19 02:54 12/22/19 07:00 12/22/19 02:54 12/22/19 02:54 12/22/19 07:45 Oxygen Delivery Method Room Air Weight: 171 lb 8 oz Body Mass Index (BMI) 24.6 Intake and Output for Last 24 Hours 12/20/19 12/21/19 12/22/19 23:59 23:59 23:59 Intake Total 1373.25 / 1373.25 916.00 / 916.00 350 / 350 Output Total 575 / 575 300 / 300 Balance 1373.25 / 1373.25 341.00 / 341.00 50 / 50 General: Alert, Oriented x3, Cooperative, No apparent distress HEENT: Atraumatic, PERRLA, EOMI, Normocephalic Oral: Moist Mucosa Neck: Supple, No JVD Lungs: Clear to auscultation, Normal air movement, No rhonchi, No wheeze, No rales, Diminished Cardiovascular: Regular rate, Regular Rhythm, Normal S1, Normal S2, No murmurs Abdomen: Soft, Non Tender, Non-Distended, No Hepato-splenomegaly Extremities: No edema, Capillary Refill Less than 3 Seconds Skin: No rashes, No breakdown Musculoskeletal: Tenderness - Mild tenderness to palpation his right upper extremity, currently in a sling Neurological: Neuro grossly intact, Sensory exam intact to light touch and pain Psych/Mental Status: Normal Affect, Appropriate Microbiology Past 72 Hours 12/20/19 16:00 Blood Culture (Wb) - Anticubital Left Blood Culture - Preliminary Staphylococcus aureus 12/19/19 17:05 Blood Culture (Wb) - Left Hand Blood Culture - Final Staphylococcus aureus 12/18/19 18:40 Blood Culture (Wb) - Left Hand Bacteria Detection (PCR) - Final Staphylococcus aureus 12/18/19 18:40 Blood Culture (Wb) - Left Hand Blood Culture - Final Staphylococcus aureus 12/18/19 23:40 Blood Culture (Wb) - Left Forearm Blood Culture - Final Staphylococcus aureus Laboratory Results 12/22/19 05:30: WBC 11.8 H, RBC 4.26 L, Hgb 12.0 L, Hct 35.8 L, MCV 84.0, MCH 28.2, MCHC 33.5, RDW Std Deviation 38.0, RDW Coeff of Colleen 12.5, Plt Count 330, MPV 9.8, Immature Gran % (Auto) 0.700, Neut % (Auto) 77.9 H, Lymph % (Auto) 10.3 L, [place] % (Auto) 10.5 H, Eos % (Auto) 0.4, Baso % (Auto) 0.2, Absolute Neuts (auto) 9.2 H, Absolute Lymphs (auto) 1.22, Nucleated RBC % 0 12/22/19 05:30: Sodium 137, Potassium 3.9, Chloride 106, Carbon Dioxide 28.0, Anion Gap 3 L, BUN 23 H, Creatinine 0.87, Estim Creat Clear Calc 69.92, Est GFR (MDRD) Af Amer 109, Est GFR (MDRD) Non-Af 90, BUN/Creatinine Ratio 26.5 H, Glucose 117 H, Calcium 9.3, Magnesium 2.3 Current Medications Acetaminophen (Tylenol) 650 mg PO Q6H PRN PRN PRN Reason: Pain Score 1-10/Temp > 100.7 F Aspirin (Aspirin, Baby) 81 mg PO DAILY [facility] Last Admin: 12/21/19 11:57 Dose: 81 mg Documented by: Calamine/Phenol (Calmoseptine Ointment) 1 applic TOPICAL BID [facility]; Protocol Last Admin: 12/21/19 21:07 Dose: 1 applicatio Documented by: Dextrose (D50w Syringe) 0 gm IV X1 PRN; Protocol PRN Reason: Hypoglycemia Enoxaparin Sodium (Lovenox) 40 mg SC DAILY [facility] Last Admin: 12/21/19 11:57 Dose: 40 mg Documented by: Glucagon () 1 mg IM .X1 PRN PRN Reason: Hypoglycemia Sodium Chloride () 250 mls @ 15 mls/hr IV .[id number] PRN PRN Reason: Saline Flush Last Infusion: 12/21/19 06:30 Dose: 0 mls/hr Documented by: Sodium Chloride () 250 mls @ 15 mls/hr IV .[id number] PRN PRN Reason: Additional IVPB Infusion Cefazolin Sodium 2 gm/ Sodium (Chloride) 110 mls @ 150 mls/hr IV Q8 JUSTIN Last Infusion: 12/22/19 06:24 Dose: Infused Documented by: Ondansetron HCl (Zofran) 4 mg IV Q8H PRN PRN PRN Reason: NAUSEA/VOMITING Oxycodone HCl (Oxyir) 10 mg PO Q4H PRN PRN PRN Reason: Pain Score 4-10/10 Senna (Senokot) 1 tablet PO BID PRN PRN PRN Reason: Constipation Sodium Chloride () 10 - 40 ml IV UD PRN PRN Reason: SALINE FLUSH Last Admin: 12/21/19 21:06 Dose: 10 ml Documented by: STROKE Vital Signs/Narrative: Vital Signs Pulse Pulse Ox 12/22/19 07:45 96 12/22/19 07:00 66 Medical Necessity - Tobacco Use Smoking Status: Never smoker Tobacco Use: Non-smoker Assessment/Plan All Active Problems Pneumonia (Acute) Leukocytosis (Acute) Bacteremia (Acute) 1. Sepsis secondary to community-acquired pneumonia from MSSA with MSSA bacteremia -Continue with the Ancef, echo for vegetations was negative, his EF is 55% with stage II diastolic dysfunction -Appreciate infectious disease assistance -Had repeat blood cultures yesterday. Blood cultures from the are growing staph again -We will obtain a single blood culture this afternoon 2. Pathologic fracture of his right humerus with right upper extremity weakness and pain -Appreciate orthopedic assistance, patient fractured his humerus by hitting it on a side mirror of a car -CT scans of his chest abdomen and pelvis were unremarkable for primary -We will continue with immobilization with a sling and he will need to follow-up with orthopedic oncology as an outpatient as well as medical oncology -Continue with PT and OT evaluation for possible placement DVT: Lovenox Inpatient E&M: [id number] Subs Hosp L2
--- NOTE | 2019-12-22 09:45 | CASEMGMT ---
DAVID spoke with Sandie at [facility] and updated her. DAVID also faxed updates. Patient's called and said she has Healthcare POA papers and will bring them in to [facility]. Plan: d/c to [facility] when medically ready. Radha HUTCHINS MSW
[2019-12-22] MEDS: Menthol/Lanolin/Calamine/Znox 113 GM Tube 1 APPLIC TOPICAL ×2 (10:38→21:12)
[2019-12-22] MEDS: Aspirin 81 MG TAB.CHEW PO (10:39)
[2019-12-22] MEDS: Enoxaparin 40 MG/0.4 ML Syringe SC (10:39)
--- NOTE | 2019-12-22 12:53 | PN.ORTHO_ITS ---
Patient Problems: Active and Suspected Problems Pneumonia (Acute) Leukocytosis (Acute) Bacteremia (Acute) Subjective: Patient is doing okay in regards to his right arm today he says the pain is controlled very little. - Physical Exam Vitals/I&O's: Vital Signs Temp Pulse Resp BP Pulse Ox 98.3 F 77 18 123/70 H 96 12/22/19 08:54 12/22/19 11:00 12/22/19 08:54 12/22/19 08:54 12/22/19 08:54 Oxygen Delivery Method Room Air Weight: 171 lb 7.961 oz Body Mass Index (BMI) 24.6 Intake and Output for Last 24 Hours 12/20/19 12/21/19 12/22/19 23:59 23:59 23:59 Intake Total 1373.25 / 1373.25 916.00 / 916.00 470 / 470 Output Total 575 / 575 400 / 400 Balance 1373.25 / 1373.25 341.00 / 341.00 70 / 70 General: Cooperative, No apparent distress, Confused Extremities: - - Similar exam as yesterday there is no joint effusion of the shoulder there is no erythema around the shoulder no concern for infection around the shoulder his compartments are soft he is neurovascular intact he does have deformity of the humerus in regular sling currently. No bursal septic bursitis swelling present at elbow from gravity Microbiology Past 72 Hours 12/20/19 16:00 Blood Culture (Wb) - Anticubital Left Blood Culture - Preliminary Staphylococcus aureus 12/19/19 17:05 Blood Culture (Wb) - Left Hand Blood Culture - Final Staphylococcus aureus 12/18/19 18:40 Blood Culture (Wb) - Left Hand Bacteria Detection (PCR) - Final Staphylococcus aureus 12/18/19 18:40 Blood Culture (Wb) - Left Hand Blood Culture - Final Staphylococcus aureus 12/18/19 23:40 Blood Culture (Wb) - Left Forearm Blood Culture - Final Staphylococcus aureus Laboratory Results 12/22/19 05:30: WBC 11.8 H, RBC 4.26 L, Hgb 12.0 L, Hct 35.8 L, MCV 84.0, MCH 28.2, MCHC 33.5, RDW Std Deviation 38.0, RDW Coeff of Colleen 12.5, Plt Count 330, MPV 9.8, Immature Gran % (Auto) 0.700, Neut % (Auto) 77.9 H, Lymph % (Auto) 10.3 L, [place] % (Auto) 10.5 H, Eos % (Auto) 0.4, Baso % (Auto) 0.2, Absolute Neuts (auto) 9.2 H, Absolute Lymphs (auto) 1.22, Nucleated RBC % 0 12/22/19 05:30: Sodium 137, Potassium 3.9, Chloride 106, Carbon Dioxide 28.0, Anion Gap 3 L, BUN 23 H, Creatinine 0.87, Estim Creat Clear Calc 69.92, Est GFR (MDRD) Af Amer 109, Est GFR (MDRD) Non-Af 90, BUN/Creatinine Ratio 26.5 H, Glucose 117 H, Calcium 9.3, Magnesium 2.3 12/22/19 05:30: Total PSA 160.00 H 12/22/19 09:28: Total Protein (PEP) Pending, IgG Pending, IgA Pending, IgM Pending, Albumin (SERGIO) Pending, Albumin/Globulin (SERGIO) Pending, Nhclg-6-Geyyzccol SERGIO Pending, Iexsw-3-Ieiipykch SERGIO Pending, Beta-Globulins (SERGIO) Pending, Gamma Globulins (SERGIO) Pending, SERGIO M-Raji Pending, Free [place] LC, Quant Pending, Free Lambda LC, Quant Pending, Free [place]/Lambda Ratio P ending Current Medications Acetaminophen (Tylenol) 650 mg PO Q6H PRN PRN PRN Reason: Pain Score 1-10/Temp > 100.7 F Aspirin (Aspirin, Baby) 81 mg PO DAILY [facility] Last Admin: 12/22/19 10:39 Dose: 81 mg Documented by: Calamine/Phenol (Calmoseptine Ointment) 1 applic TOPICAL BID [facility]; Protocol Last Admin: 12/22/19 10:38 Dose: 1 applicatio Documented by: Dextrose (D50w Syringe) 0 gm IV X1 PRN; Protocol PRN Reason: Hypoglycemia Enoxaparin Sodium (Lovenox) 40 mg SC DAILY [facility] Last Admin: 12/22/19 10:39 Dose: 40 mg Documented by: Glucagon () 1 mg IM .X1 PRN PRN Reason: Hypoglycemia Sodium Chloride () 250 mls @ 15 mls/hr IV .[id number] PRN PRN Reason: Saline Flush Last Infusion: 12/21/19 06:30 Dose: 0 mls/hr Documented by: Sodium Chloride () 250 mls @ 15 mls/hr IV .[id number] PRN PRN Reason: Additional IVPB Infusion Cefazolin Sodium 2 gm/ Sodium (Chloride) 110 mls @ 150 mls/hr IV Q8 JUSTIN Last Infusion: 12/22/19 06:24 Dose: Infused Documented by: Ondansetron HCl (Zofran) 4 mg IV Q8H PRN PRN PRN Reason: NAUSEA/VOMITING Oxycodone HCl (Oxyir) 10 mg PO Q4H PRN PRN PRN Reason: Pain Score 4-10/10 Senna (Senokot) 1 tablet PO BID PRN PRN PRN Reason: Constipation Sodium Chloride () 10 - 40 ml IV UD PRN PRN Reason: SALINE FLUSH Last Admin: 12/21/19 21:06 Dose: 10 ml Documented by: Medical Necessity - Tobacco Use Smoking Status: Never smoker Tobacco Use: Non-smoker Assessment/Plan All Active Problems Pneumonia (Acute) Leukocytosis (Acute) Bacteremia (Acute) No concern for septic arthritis of shoulder there is no effusion on MRI or exam and no erythema concerning signs on exam. patient needs shoulder immobilizer as opposed to sling to help with swelling in his hand and alignment of the fracture No change in treatment plan from orthopedic standpoint will need primary diagnosis of lesion confirmed. Will be set up for orthopedic oncology referral.
--- NOTE | 2019-12-22 15:23 | CASEMGMT ---
DAVID spoke with Infectious Disease Physician about antibiotics for patient. He said he will know more on Wednesday. He said patient will need to stay at [facility] through the weekend. DAVID called Sandie at [facility] and let her know this information. Plan: [facility] pending patient being medically ready. Radha HUTCHINS MSW
--- NOTE | 2019-12-22 15:34 | PCM.PN.ID ---
Patient Problems: Active and Suspected Problems Pneumonia (Acute) Leukocytosis (Acute) Bacteremia (Acute) Subjective: Feeling better, no fever, arm less sore - Physical Exam Vitals/I&O's: Vital Signs Temp Pulse Resp BP Pulse Ox 98.3 F 77 18 123/70 H 96 12/22/19 08:54 12/22/19 11:00 12/22/19 08:54 12/22/19 08:54 12/22/19 08:54 Oxygen Delivery Method Room Air Weight: 77.79 kg Body Mass Index (BMI) 24.6 Intake and Output for Last 24 Hours 12/20/19 12/21/19 12/22/19 23:59 23:59 23:59 Intake Total 1373.25 / 1373.25 916.00 / 916.00 580 / 580 Output Total 575 / 575 400 / 400 Balance 1373.25 / 1373.25 341.00 / 341.00 180 / 180 General: Alert, Cooperative, No apparent distress Lungs: Clear to auscultation, Normal air movement Cardiovascular: Regular rate, Regular Rhythm Abdomen: Soft, Non Tender, Non-Distended Skin: No rashes Microbiology Past 72 Hours 12/20/19 16:00 Blood Culture (Wb) - Anticubital Left Blood Culture - Preliminary Staphylococcus aureus 12/19/19 17:05 Blood Culture (Wb) - Left Hand Blood Culture - Final Staphylococcus aureus 12/18/19 18:40 Blood Culture (Wb) - Left Hand Bacteria Detection (PCR) - Final Staphylococcus aureus 12/18/19 18:40 Blood Culture (Wb) - Left Hand Blood Culture - Final Staphylococcus aureus 12/18/19 23:40 Blood Culture (Wb) - Left Forearm Blood Culture - Final Staphylococcus aureus Laboratory Results 12/22/19 05:30: WBC 11.8 H, RBC 4.26 L, Hgb 12.0 L, Hct 35.8 L, MCV 84.0, MCH 28.2, MCHC 33.5, RDW Std Deviation 38.0, RDW Coeff of Colleen 12.5, Plt Count 330, MPV 9.8, Immature Gran % (Auto) 0.700, Neut % (Auto) 77.9 H, Lymph % (Auto) 10.3 L, [place] % (Auto) 10.5 H, Eos % (Auto) 0.4, Baso % (Auto) 0.2, Absolute Neuts (auto) 9.2 H, Absolute Lymphs (auto) 1.22, Nucleated RBC % 0 12/22/19 05:30: Sodium 137, Potassium 3.9, Chloride 106, Carbon Dioxide 28.0, Anion Gap 3 L, BUN 23 H, Creatinine 0.87, Estim Creat Clear Calc 69.92, Est GFR (MDRD) Af Amer 109, Est GFR (MDRD) Non-Af 90, BUN/Creatinine Ratio 26.5 H, Glucose 117 H, Calcium 9.3, Magnesium 2.3 12/22/19 05:30: Total PSA 160.00 H 12/22/19 09:28: Total Protein (PEP) Pending, IgG Pending, IgA Pending, IgM Pending, Albumin (SERGIO) Pending, Albumin/Globulin (SERGIO) Pending, Katfq-6-Swylvsdvg SERGIO Pending, Gzhnf-7-Eqmkrolqt SERGIO Pending, Beta-Globulins (SERGIO) Pending, Gamma Globulins (SERGIO) Pending, SERGIO M-Raji Pending, Free [place] LC, Quant Pending, Free Lambda LC, Quant Pending, Free [place]/Lambda Ratio Pending Current Medications Acetaminophen (Tylenol) 650 mg PO Q6H PRN PRN PRN Reason: Pain Score 1-10/Temp > 100.7 F Aspirin (Aspirin, Baby) 81 mg PO DAILY [facility] Last Admin: 12/22/19 10:39 Dose: 81 mg Documented by: Calamine/Phenol (Calmoseptine Ointment) 1 applic TOPICAL BID [facility]; Protocol Last Admin: 12/22/19 10:38 Dose: 1 applicatio Documented by: Dextrose (D50w Syringe) 0 gm IV X1 PRN; Protocol PRN Reason: Hypoglycemia Enoxaparin Sodium (Lovenox) 40 mg SC DAILY [facility] Last Admin: 12/22/19 10:39 Dose: 40 mg Documented by: Glucagon () 1 mg IM .X1 PRN PRN Reason: Hypoglycemia Sodium Chloride () 250 mls @ 15 mls/hr IV .[id number] PRN PRN Reason: Saline Flush Last Infusion: 12/21/19 06:30 Dose: 0 mls/hr Documented by: Sodium Chloride () 250 mls @ 15 mls/hr IV .[id number] PRN PRN Reason: Additional IVPB Infusion Cefazolin Sodium 2 gm/ Sodium (Chloride) 110 mls @ 150 mls/hr IV Q8 JUSTIN Last Infusion: 12/22/19 15:25 Dose: Infused Documented by: Ondansetron HCl (Zofran) 4 mg IV Q8H PRN PRN PRN Reason: NAUSEA/VOMITING Oxycodone HCl (Oxyir) 10 mg PO Q4H PRN PRN PRN Reason: Pain Score 4-10/10 Senna (Senokot) 1 tablet PO BID PRN PRN PRN Reason: Constipation Sodium Chloride () 10 - 40 ml IV UD PRN PRN Reason: SALINE FLUSH Last Admin: 12/21/19 21:06 Dose: 10 ml Documented by: Medical Necessity - Tobacco Use Smoking Status: Never smoker Tobacco Use: Non-smoker Route of nutrition/ use of supplements: [] Nutritional Intake: [] IV Site: [] Gonsalves Catheter: [] - Assessment/Plan Antibiotics: [] Assessment/Plan: [] Active and Suspected Problems Pneumonia (Acute) Leukocytosis (Acute) MSSA bacteremia. Now with humerus fracture, had been concerned for possible septic arthritis in that shoulder given his bacteremia and pain. Repeat bcx today. TTE with no veg. Feeling better overall. Cont cefazolin. Seen by ortho, MRI with possible pathologic fracture. No malignancy seen on screening CT. May need DAMION if bcx do not clear. Will follow
[2019-12-22] MEDS: 0.9% Saline Lock 10 ML Syringe IV (21:13)
[2019-12-23] VITALS (10 sets, daily range): BP systolic 116–138; BP diastolic 55–72; PULSE 62–86; RESP 16–18; TEMP 36.6–37.2; O2SAT 96–98
[2019-12-23] MEDS: 0.9% Saline Lock 10 ML Syringe IV ×3 (05:26→22:23)
[2019-12-23] MEDS: Cefazolin 2 GM in 0.9% Normal Saline 100 ML IV ×3 (05:26→22:24)
--- NOTE | 2019-12-23 08:39 | PCM.PN.HOSP ---
Patient Problems: Active and Suspected Problems Pneumonia (Acute) Leukocytosis (Acute) Bacteremia (Acute) Subjective: Doing well, feels much better than he did on admission. He would like to go home today if possible. Vitals/I&O's: Vital Signs Temp Pulse Resp BP Pulse Ox 98.9 F 76 16 116/70 96 12/23/19 03:13 12/23/19 07:30 12/23/19 03:13 12/23/19 03:13 12/23/19 07:18 Oxygen Delivery Method Room Air Weight: 171 lb 7.961 oz Body Mass Index (BMI) 24.6 Intake and Output for Last 24 Hours 12/21/19 12/22/19 12/23/19 23:59 23:59 23:59 Intake Total 916.00 / 916.00 1290 / 1290 350 / 350 Output Total 575 / 575 850 / 850 200 / 200 Balance 341.00 / 341.00 440 / 440 150 / 150 General: Alert, Oriented x3, Cooperative, No apparent distress HEENT: Atraumatic, PERRLA, EOMI, Normocephalic Oral: Moist Mucosa Neck: Supple, No JVD Lungs: Clear to auscultation, Normal air movement, No rhonchi, No wheeze, No rales, Diminished Cardiovascular: Regular rate, Regular Rhythm, Normal S1, Normal S2, No murmurs Abdomen: Soft, Non Tender, Non-Distended, No Hepato-splenomegaly Extremities: No edema, Capillary Refill Less than 3 Seconds Skin: No rashes, No breakdown Musculoskeletal: Tenderness - Mild tenderness to palpation his right upper extremity, currently in a sling Neurological: Neuro grossly intact, Sensory exam intact to light touch and pain Psych/Mental Status: Normal Affect, Appropriate Microbiology Past 72 Hours 12/20/19 16:00 Blood Culture (Wb) - Anticubital Left Blood Culture - Preliminary Staphylococcus aureus 12/19/19 17:05 Blood Culture (Wb) - Left Hand Blood Culture - Final Staphylococcus aureus 12/18/19 18:40 Blood Culture (Wb) - Left Hand Bacteria Detection (PCR) - Final Staphylococcus aureus 12/18/19 18:40 Blood Culture (Wb) - Left Hand Blood Culture - Final Staphylococcus aureus 12/18/19 23:40 Blood Culture (Wb) - Left Forearm Blood Culture - Final Staphylococcus aureus Laboratory Results 12/22/19 05:30: Total PSA 160.00 H 12/22/19 09:28: Total Protein (PEP) Pending, IgG Pending, IgA Pending, IgM Pending, Albumin (SERGIO) Pending, Albumin/Globulin (SERGIO) Pending, Cutlj-7-Ygbvuzwoj SERGIO Pending, Suhvv-0-Mddnkwmjd SERGIO Pending, Beta-Globulins (SERGIO) Pending, Gamma Globulins (SERGIO) Pending, SERGIO M-Raji Pending, Free [place] LC, Quant Pending, Free Lambda LC, Quant Pending, Free [place]/Lambda Ratio Pending Current Medications Acetaminophen (Tylenol) 650 mg PO Q6H PRN PRN PRN Reason: Pain Score 1-10/Temp > 100.7 F Aspirin (Aspirin, Baby) 81 mg PO DAILY [facility] Last Admin: 12/22/19 10:39 Dose: 81 mg Documented by: Calamine/Phenol (Calmoseptine Ointment) 1 applic TOPICAL BID [facility]; Protocol Last Admin: 12/22/19 21:12 Dose: 1 applicatio Documented by: Dextrose (D50w Syringe) 0 gm IV X1 PRN; Protocol PRN Reason: Hypoglycemia Enoxaparin Sodium (Lovenox) 40 mg SC DAILY [facility] Last Admin: 12/22/19 10:39 Dose: 40 mg Documented by: Glucagon () 1 mg IM .X1 PRN PRN Reason: Hypoglycemia Sodium Chloride () 250 mls @ 15 mls/hr IV .[id number] PRN PRN Reason: Saline Flush Last Infusion: 12/21/19 06:30 Dose: 0 mls/hr Documented by: Sodium Chloride () 250 mls @ 15 mls/hr IV .[id number] PRN PRN Reason: Additional IVPB Infusion Cefazolin Sodium 2 gm/ Sodium (Chloride) 110 mls @ 150 mls/hr IV Q8 [facility] Last Infusion: 12/23/19 06:10 Dose: Infused Documented by: Ondansetron HCl (Zofran) 4 mg IV Q8H PRN PRN PRN Reason: NAUSEA/VOMITING Oxycodone HCl (Oxyir) 10 mg PO Q4H PRN PRN PRN Reason: Pain Score 4-10/10 Senna (Senokot) 1 tablet PO BID PRN PRN PRN Reason: Constipation Sodium Chloride () 10 - 40 ml IV UD PRN PRN Reason: SALINE FLUSH Last Admin: 12/23/19 05:26 Dose: 10 ml Documented by: STROKE Vital Signs/Narrative: Vital Signs Pulse Pulse Ox 12/23/19 07:30 76 12/23/19 07:18 96 Medical Necessity - Tobacco Use Smoking Status: Never smoker Tobacco Use: Non-smoker Assessment/Plan All Active Problems Pneumonia (Acute) Leukocytosis (Acute) Bacteremia (Acute) 1. Sepsis secondary to community-acquired pneumonia from MSSA with MSSA bacteremia -Continue with the Ancef, echo for vegetations was negative, his EF is 55% with stage II diastolic dysfunction -Appreciate infectious disease assistance -Preliminarily blood cultures from 12/21/2019 are negative therefore it appears that we have cleared the infection. We will see if he is okay to go to [facility]pc facility today or tomorrow if he has to wait till Wednesday. 2. Pathologic fracture of his right humerus with right upper extremity weakness and pain likely secondary to prostate cancer -Appreciate orthopedic assistance, patient fractured his humerus by hitting it on a side mirror of a car -CT scans of his chest abdomen and pelvis were unremarkable for primary -Studies for multi myeloma are still pending however his PSA did come back elevated at 160 therefore indicating a likely prostate cancer with mets to the bone. He will follow-up with medical oncology as an outpatient on discharge. -Continue with PT and OT evaluation for possible placement DVT: Lovenox Inpatient E&M: 03424 Subs Hosp L2
--- NOTE | 2019-12-23 09:45 | CASEMGMT ---
Per Dr. Joya, pt's blood cultures are back and negative and he would like pt to possibly go to SNF tomorrow, 12/24/2019. Dr. Joya is aware that Dr. Concepcion had stated wednesday. Call to [facility], to see if pt could go to [facility] on Saturday 12/23. Elsa CHENG CM
[2019-12-23] MEDS: Enoxaparin 40 MG/0.4 ML Syringe SC (10:09)
[2019-12-23] MEDS: Menthol/Lanolin/Calamine/Znox 113 GM Tube 1 APPLIC TOPICAL ×2 (10:09→22:33)
[2019-12-23] MEDS: Aspirin 81 MG TAB.CHEW PO (10:09)
--- NOTE | 2019-12-23 12:24 | CASEMGMT ---
SOCIAL WORK Updated by Dena AMADO, per doctor blood cultures are negative and would like to discharge patient this weekend. Call to [facility] to update. Nursing to speak with Sandie in admissions and call this worker back. Rigoberto Wall, LOW HEEL BUILDER, PCB DESIGNER
--- NOTE | 2019-12-23 14:15 | CASEMGMT ---
SOCIAL WORK Call to [facility] to follow up regarding discharge this weekend, spoke with charge nurse, Caridad. Per Caridad, has not heard back from Sandie with admissions and still not sure if able to accept patient before Wednesday. Caridad reports they already have 2 pending admissions for today. Hope to call this worker back after she speaks with Sandie. Awaiting call back at this time. Rigoberto Wall, ROLL FORM OPERATOR, COMMODITY ANALYST
--- NOTE | 2019-12-23 15:23 | CASEMGMT ---
SOCIAL WORK Received call back from [place] with [facility]. Per [place], spoke with Sandie and facility unable to accept patient until Wednesday. Informed SW will follow up Wednesday. Staff sloane. Rigoberto Wall MSW, GOLD MINER
--- NOTE | 2019-12-23 16:27 | NURSING ---
This nurse attempted to get pt oob onto bsc with marine painter assist but pt was not able too. Assisted onto bedpan instead.
[2019-12-23] MEDS: oxyCODONE 5 MG Tablet 10 MG PO (16:31)
[2019-12-23] MEDS: Senna Tablet 1 TABLET PO (16:31)
[2019-12-24] VITALS (8 sets, daily range): BP systolic 113–128; BP diastolic 56–69; PULSE 58–79; RESP 16–18; TEMP 36.6–37.1; O2SAT 97–98
[2019-12-24] MEDS: Cefazolin 2 GM in 0.9% Normal Saline 100 ML IV ×3 (05:50→21:17)
[2019-12-24] MEDS: Aspirin 81 MG TAB.CHEW PO (07:46)
[2019-12-24] MEDS: Enoxaparin 40 MG/0.4 ML Syringe SC (08:39)
[2019-12-24] MEDS: Menthol/Lanolin/Calamine/Znox 113 GM Tube 1 APPLIC TOPICAL ×2 (08:44→20:31)
--- NOTE | 2019-12-24 10:25 | PCM.PN.HOSP ---
Patient Problems: Active and Suspected Problems Pneumonia (Acute) Leukocytosis (Acute) Bacteremia (Acute) Subjective: Doing well, no issues overnight Vitals/I&O's: Vital Signs Temp Pulse Resp BP Pulse Ox 98.3 F 78 18 125/69 H 98 12/24/19 08:37 12/24/19 08:37 12/24/19 08:37 12/24/19 08:37 12/24/19 08:37 Oxygen Delivery Method Room Air Weight: 171 lb 7.961 oz Body Mass Index (BMI) 24.6 Intake and Output for Last 24 Hours 12/22/19 12/23/19 12/24/19 23:59 23:59 23:59 Intake Total 1290 / 1290 1010 / 1010 210 / 210 Output Total 850 / 850 550 / 550 300 / 300 Balance 440 / 440 460 / 460 -90 / -90 General: Alert, Oriented x3, Cooperative, No apparent distress HEENT: Atraumatic, PERRLA, EOMI, Normocephalic Oral: Moist Mucosa Neck: Supple, No JVD Lungs: Clear to auscultation, Normal air movement, No rhonchi, No wheeze, No rales, Diminished Cardiovascular: Regular rate, Regular Rhythm, Normal S1, Normal S2, No murmurs Abdomen: Soft, Non Tender, Non-Distended, No Hepato-splenomegaly Extremities: No edema, Capillary Refill Less than 3 Seconds Skin: No rashes, No breakdown Musculoskeletal: Tenderness - Mild tenderness to palpation his right upper extremity, currently in a sling Neurological: Neuro grossly intact, Sensory exam intact to light touch and pain Psych/Mental Status: Normal Affect, Appropriate Microbiology Past 72 Hours 12/21/19 16:52 Blood Culture (Wb) - Anticubital Left Blood Culture - Preliminary No growth in 48 hours. 12/20/19 16:00 Blood Culture (Wb) - Anticubital Left Blood Culture - Preliminary No growth in 48 hours. 12/19/19 17:05 Blood Culture (Wb) - Left Hand Blood Culture - Final Staphylococcus aureus 12/18/19 18:40 Blood Culture (Wb) - Left Hand Bacteria Detection (PCR) - Final Staphylococcus aureus 12/18/19 18:40 Blood Culture (Wb) - Left Hand Blood Culture - Final Staphylococcus aureus Current Medications Acetaminophen (Tylenol) 650 mg PO Q6H PRN PRN PRN Reason: Pain Score 1-10/Temp > 100.7 F Aspirin (Aspirin, Baby) 81 mg PO DAILY [facility] Last Admin: 12/24/19 07:46 Dose: 81 mg Documented by: Calamine/Phenol (Calmoseptine Ointment) 1 applic TOPICAL BID [facility]; Protocol Last Admin: 12/24/19 08:44 Dose: 1 applicatio Documented by: Dextrose (D50w Syringe) 0 gm IV X1 PRN; Protocol PRN Reason: Hypoglycemia Enoxaparin Sodium (Lovenox) 40 mg SC DAILY [facility] Last Admin: 12/24/19 08:39 Dose: 40 mg Documented by: Glucagon () 1 mg IM .X1 PRN PRN Reason: Hypoglycemia Sodium Chloride () 250 mls @ 15 mls/hr IV .[id number] PRN PRN Reason: Saline Flush Last Infusion: 12/21/19 06:30 Dose: 0 mls/hr Documented by: Sodium Chloride () 250 mls @ 15 mls/hr IV .[id number] PRN PRN Reason: Additional IVPB Infusion Cefazolin Sodium 2 gm/ Sodium (Chloride) 110 mls @ 150 mls/hr IV Q8 [facility] Last Infusion: 12/24/19 06:34 Dose: Infused Documented by: Ondansetron HCl (Zofran) 4 mg IV Q8H PRN PRN PRN Reason: NAUSEA/VOMITING Oxycodone HCl (Oxyir) 10 mg PO Q4H PRN PRN PRN Reason: Pain Score 4-10/10 Last Admin: 12/23/19 16:31 Dose: 10 mg Documented by: Senna (Senokot) 1 tablet PO BID PRN PRN PRN Reason: Constipation Last Admin: 12/23/19 16:31 Dose: 1 tablet Documented by: Sodium Chloride () 10 - 40 ml IV UD PRN PRN Reason: SALINE FLUSH Last Admin: 12/23/19 22:23 Dose: 10 ml Documented by: STROKE Vital Signs/Narrative: Vital Signs Temp Pulse Resp BP Pulse Ox 12/24/19 08:37 98.3 F 78 18 125/69 H 98 Medical Necessity - Tobacco Use Smoking Status: Never smoker Tobacco Use: Non-smoker Assessment/Plan All Active Problems Pneumonia (Acute) Leukocytosis (Acute) Bacteremia (Acute) 1. Sepsis secondary to community-acquired pneumonia from MSSA with MSSA bacteremia -Continue with the Ancef, echo for vegetations was negative, his EF is 55% with stage II diastolic dysfunction -Appreciate infectious disease assistance -Preliminarily blood cultures from 12/21/2019 are negative therefore it appears that we have cleared the infection. intermediate facility has refused to take him until Wednesday 2. Pathologic fracture of his right humerus with right upper extremity weakness and pain likely secondary to prostate cancer -Appreciate orthopedic assistance, patient fractured his humerus by hitting it on a side mirror of a car -CT scans of his chest abdomen and pelvis were unremarkable for primary -Studies for multi myeloma are still pending however his PSA did come back elevated at 160 therefore indicating a likely prostate cancer with mets to the bone. He will follow-up with medical oncology as an outpatient on discharge. -Continue with PT and OT evaluation for possible placement DVT: Lovenox Inpatient E&M: 24063 Subs Hosp L2
[2019-12-24] MEDS: Senna Tablet 1 TABLET PO (14:52)
[2019-12-24] MEDS: Acetaminophen 325 MG Tablet 650 MG PO (14:52)
[2019-12-24] MEDS: oxyCODONE 5 MG Tablet 10 MG PO ×2 (14:52→20:31)
[2019-12-25 02:47] VITALS: PULSE 63
[2019-12-25 03:25] VITALS: BP 115/64; PULSE 71; RESP 18; TEMP 36.8; O2SAT 99
[2019-12-25] MEDS: Cefazolin 2 GM in 0.9% Normal Saline 100 ML IV (05:19)
[2019-12-25] MEDS: 0.9% Saline Lock 10 ML Syringe IV (05:19)
--- NOTE | 2019-12-25 07:38 | PCM.TXEXTCAR ---
- Diet 12/19/19 02:30 Diet: Regular Diet Food consistency:: Regular Liquid Consistency:: Regular/Thin - Routine Orders/Code Status Code Status: Full Code - Therapies Weight Bearing: Non weight bearing Extremity Affected:: Right Upper Physical Therapy: Eval and Treat Occupational Therapy: Eval and Treat - Allergies/Procedures Done in Hospital Allergies/Adverse Reactions: Allergies No Known Allergies Allergy (Verified 12/18/19 16:44) Procedures: None - Type of Care/Length of Stay Estimated LOS: Convalescent Care Less Than 30 days Type of Care Needed: Skilled Rehab Potential: Good Prognosis: Good - Additional Orders/Day of Discharge Day of Discharge: 12/25/19 - Dietary and Speech Recommendations Dietitian Recommendations/Changes: Continue Regular diet. - Follow Up Care Primary Care Physician: Care Physician,No Primary [Primary Care Provider] - Please follow up with your Primary Care Physician in: 3-5 days Please Follow Up With: Jatinder Hinds MD When: 2-4 weeks
[2019-12-25 08:00] VITALS: PULSE 69
[2019-12-25 10:17] VITALS: BP 108/65; PULSE 65; RESP 16; TEMP 36.8; O2SAT 97
--- NOTE | 2019-12-25 10:29 | CASEMGMT ---
Patient is ready for discharge. DAVID faxed orders to [facility] DAVID completed convalescent in [facility]. DAVID called patient's to see if she wanted to see patient before he leaves for [facility] since she will not be able to see him for 14 days. She said she won't make it in to see him. DAVID called [facility] and arranged for patient to get picked up at 11a via cot. DAVID notified RN, tape sewing machine operator, patient's , patient, and Sandie at [facility] All in agreement with discharge plan. Plan: d/c to [facility] under skilled level of care on a convalescent stay. [facility] transported via cot. Radha CALDERON
[2019-12-25] MEDS: Enoxaparin 40 MG/0.4 ML Syringe SC (10:34)
--- NOTE | 2019-12-25 10:34 | DS.PCM_ITS ---
Discharge Date and Diagnosis - Problem List Patient Problems: Active and Suspected Problems Pneumonia (Acute) Leukocytosis (Acute) Bacteremia (Acute) Date of Admission: 12/18/19 Date of Discharge: 12/25/19 - Primary Discharge Diagnosis Acute Problems: Active Problems Pneumonia (Acute) Leukocytosis (Acute) Bacteremia (Acute) Hospital Course and Treatment Imaging Results: CT Brain: IMPRESSION: Chronic involutional changes of the brain. CXR: IMPRESSION: Ill-defined hazy infiltrates of the lung bases. Calcified plaques of the aortic arch. Diffuse generative changes of the thoracic spine. R Humerus XR: IMPRESSION: Slightly displaced oblique fracture with anterior and lateral angulation deformity of the proximal humeral shaft. RUE MRI: IMPRESSION: Pathologic fracture with humeral lesions. Edema in the musculature of the upper arm. CT Abd/Pelvis: IMPRESSION: 1. Calcified granulomas of the spleen. 2. The prostate is slightly lobular in contour and demonstrates calcifications. 3. Bilateral fat-containing inguinal hernias. 4. Small loculated fluid collection measuring 2.9 x 1.8 cm on the left adjacent to the bladder which is of unknown etiology or significance. 5. Mild old compression from 80s of T10 and L4. No lytic or blastic osseous changes are noted. 6. No retroperitoneal or deep pelvic adenopathy is noted. CT Chest: IMPRESSION: Calcified left lingular granuloma. There is no evidence of infiltrate, atelectasis, or pulmonary mass or nodule. Minimal right basilar pleural effusion and/or pleural reaction. Calcified left hilar nodes. Mild dilatation of the main pulmonary artery measuring up to 3.1 cm. Comminuted fracture the proximal right humeral shaft. Small lucent cortical foci the visualized humeral shaft. Cystic foci of the right humeral head. Echo: Interpretation Summary Mildly dilated left ventricle. The estimated ejection fraction is 55 %. Stage 2 diastolic dysfunction. There is mild global hypokinesis of the left ventricle. The left atrium is mildly enlarged. Bubble contrast study negative for right to left interatrial shunt. Mild to moderate (1-2+) tricuspid valve insufficiency. Right ventricular systolic pressure estimated to be 45 mmHg. Mild pulmonary hypertension. There is no comparison study available. Consults: ID Ortho Procedures: 2-D Echocardiogram Summary of Care Provided: Per HPI: The patient is a 79 year old M with no significant past medical history. He was admitted through the ED on 12/18/2019 with a complaint of weakness. Patient has been undergoing physical therapy for weakness at home. however states that he has recently become progressively weak and could not get out of his chair today. He admitted to some chills but denied any fever, blurred vision, lightheadedness or dizziness, chest pain, palpitations, burning with urination, nausea vomiting. He also denied any fever. His brought him into the hospital because his weakness has been getting worse. In the ED, vitals were significant for temperature of 102.4 Fahrenheit with blood pressure 119/58, pulse rate of 72 and respiratory rate of 15. He was saturating at 98% on room air. Chemistry was significant for potassium of 3.4 with total bilirubin of 1.1. Initial troponin was less than 0.015. CBC showed WBC of 16.8 and hemoglobin of 13.7 with platelets of 282. Chest x-ray showed ill-defined hazy opacities of the lung bases and calcified plaques of the aortic arch. CT of the brain showed chronic involutional changes of the brain. He has been admitted to be managed for sepsis due to community-acquired pneumonia. COVID test was negative. Hospital Course: 1. Secondary to community-acquired pneumonia from MSSA with MSSA bacteremia- 79-year-old male with no significant past medical history presents with a complaint of weakness. He had been undergoing physical therapy at home for his weakness and continued to get weaker. He was brought into the ER where he is found to have possible pneumonia with an elevated temperature of 102.4, blood cultures ended up growing MSSA. He was started on Ancef and he is completed about 6 days worth of Ancef and blood cultures have been clear since about 12/21/2019., He did have an echo which did not show any vegetations, and given how quickly his blood cultures cleared up I do not think he needs a DAMION for further evaluation. Of note he said that he had been having shoulder pain for quite a while and he says traumatically he bumped into a car mirror 3 to 4 weeks prior to presenting to the hospital. He was found to have a nondisplaced humerus fracture on the right and an upper extremity MRI demonstrated this was a pathologic fracture. CT of his abdomen and pelvis as well as his chest did not demonstrate a primary however PSA was obtained which was elevated 160 indicating a probable prostate cancer. Work-up for this pathologic fracture also included studies for multiple myeloma which are still pending. [facility] to complete 14 days total of antibiotics and he will be discharged on Zyvox 600 mg p.o. twice daily for 8 more days, he will need to follow-up with his primary care doctor as well as oncology as an outpatient. I did discuss the plan of discharge with him and he expressed understanding of the risks and benefits of going to the SNF today. 2. Pathologic fracture of his right humerus-upper extremity MRI demonstrated pathologic fracture that was nondisplaced. PSA was elevated at 160, and multiple myeloma work-up is pending. I have him following up with [facility] oncology in 2 to 4 weeks. Based on the elevation of his PSA he likely has metastatic prostate cancer, he is aware of this likelihood and states that his father had prostate cancer and lived quite a few years with it. Patient Problems: Active and Suspected Problems Pneumonia (Acute) Leukocytosis (Acute) Bacteremia (Acute) - Physical Exam Vitals/I&O's: Vital Signs Temp Pulse Resp BP Pulse Ox 98.3 F 65 16 108/65 97 12/25/19 10:17 12/25/19 10:17 12/25/19 10:17 12/25/19 10:17 12/25/19 10:17 Oxygen Delivery Method Room Air Weight: 171 lb 7.961 oz Body Mass Index (BMI) 24.6 Intake and Output for Last 24 Hours 12/23/19 12/24/19 12/25/19 23:59 23:59 23:59 Intake Total 1010 / 1010 778.5 / 778.5 110 / 110 Output Total 550 / 550 700 / 700 50 / 50 Balance 460 / 460 78.5 / 78.5 60 / 60 General: Alert, Oriented x3, Cooperative, No apparent distress HEENT: Atraumatic, PERRLA, EOMI, Normocephalic Oral: Moist Mucosa Neck: Supple, No JVD Lungs: Clear to auscultation, Normal air movement, No rhonchi, No wheeze, No rales, Diminished Cardiovascular: Regular rate, Regular Rhythm, Normal S1, Normal S2, No murmurs Abdomen: Soft, Non Tender, Non-Distended, No Hepato-splenomegaly Extremities: No edema, Capillary Refill Less than 3 Seconds Skin: No rashes, No breakdown Musculoskeletal: Tenderness - Mild tenderness to palpation his right upper extremity, currently in a sling Neurological: Neuro grossly intact, Sensory exam intact to light touch and pain Psych/Mental Status: Normal Affect, Appropriate Microbiology Past 72 Hours 12/20/19 16:00 Blood Culture (Wb) - Anticubital Left Blood Culture - Final Staphylococcus aureus 12/23/19 06:22 Blood Culture (Wb) - Right Hand Blood Culture - Preliminary No growth in 48 hours. 12/22/19 14:54 Blood Culture (Wb) - Right Hand Blood Culture - Preliminary No growth in 48 hours. 12/21/19 16:52 Blood Culture (Wb) - Anticubital Left Blood Culture - Preliminary No growth in 48 hours. Current Medications Acetaminophen (Tylenol) 650 mg PO Q6H PRN PRN PRN Reason: Pain Score 1-10/Temp > 100.7 F Last Admin: 12/24/19 14:52 Dose: 650 mg Documented by: Aspirin (Aspirin, Baby) 81 mg PO DAILY [facility] TO [facility] Last Admin: 12/24/19 07:46 Dose: 81 mg Documented by: Calamine/Phenol (Calmoseptine Ointment) 1 applic TOPICAL BID [facility] TO [facility]; Protocol Last Admin: 12/24/19 20:31 Dose: 1 applicatio Documented by: Dextrose (D50w Syringe) 0 gm IV X1 PRN; Protocol PRN Reason: Hypoglycemia Enoxaparin Sodium (Lovenox) 40 mg SC DAILY [facility] Last Admin: 12/24/19 08:39 Dose: 40 mg Documented by: Glucagon () 1 mg IM .X1 PRN PRN Reason: Hypoglycemia Sodium Chloride () 250 mls @ 15 mls/hr IV .[id number] PRN PRN Reason: Saline Flush Last Infusion: 12/24/19 23:23 Dose: 0 mls/hr Documented by: Sodium Chloride () 250 mls @ 15 mls/hr IV .[id number] PRN PRN Reason: Additional IVPB Infusion Cefazolin Sodium 2 gm/ Sodium (Chloride) 110 mls @ 150 mls/hr IV Q8 JUSTIN Last Infusion: 12/25/19 06:17 Dose: Infused Documented by: Ondansetron HCl (Zofran) 4 mg IV Q8H PRN PRN PRN Reason: NAUSEA/VOMITING Oxycodone HCl (Oxyir) 10 mg PO Q4H PRN PRN PRN Reason: Pain Score 4-10/10 Last Admin: 12/24/19 20:31 Dose: 10 mg Documented by: Senna (Senokot) 1 tablet PO BID PRN PRN PRN Reason: Constipation Last Admin: 12/24/19 14:52 Dose: 1 tablet Documented by: Sodium Chloride () 10 - 40 ml IV UD PRN PRN Reason: SALINE FLUSH Last Admin: 12/25/19 05:19 Dose: 10 ml Documented by: Home Medications: Medications to take at Discharge Aspirin 81 mg PO DAILY 12/19/19 Linezolid [Zyvox] 600 mg PO Q12H #16 tab 12/25/19 Oxycodone [Oxyir] 10 mg PO Q4H PRN PRN 4 Days #10 tab 12/25/19 Following Prescriptions Were Given to Patient: Oxycodone [Oxyir] 10 mg PO Q4H PRN PRN 4 Days #10 tab PRN Reason: Pain Score 4-10/10 Linezolid [Zyvox] 600 mg PO Q12H #16 tab Primary Care Physician: Care Physician,No Primary [Primary Care Provider] - Please follow up with your Primary Care Physician in: 3-5 days Please Follow Up With: Jatinder Hinds MD When: 2-4 weeks Disposition: Senior Care facility Minutes spent on discharge:: 35 Patient Condition:: Stable Medical Necessity - Tobacco Use Smoking Status: Never smoker Tobacco Use: Non-smoker Meaningful Use Info Meaningful Use Diagnoses (Choose all that apply): None applicable Inpatient E&M: 54832 Disch Hosp
[2019-12-25] MEDS: Aspirin 81 MG TAB.CHEW PO (10:35)
[2019-12-25] MEDS: Menthol/Lanolin/Calamine/Znox 113 GM Tube 1 APPLIC TOPICAL (10:35)
--- NOTE | 2019-12-25 10:50 | NURSING ---
attempted to contact son, but went straight to voicemail
--- NOTE | 2019-12-25 10:55 | PN.ID_ITS ---
Patient Problems: Active and Suspected Problems Pneumonia (Acute) Leukocytosis (Acute) Bacteremia (Acute) Subjective: Feeling well, no fever, no n/v/d - Physical Exam Vitals/I&O's: Vital Signs Temp Pulse Resp BP Pulse Ox 98.3 F 65 16 108/65 97 12/25/19 10:17 12/25/19 10:17 12/25/19 10:17 12/25/19 10:17 12/25/19 10:17 Oxygen Delivery Method Room Air Weight: 77.79 kg Body Mass Index (BMI) 24.6 Intake and Output for Last 24 Hours 12/23/19 12/24/19 12/25/19 23:59 23:59 23:59 Intake Total 1010 / 1010 778.5 / 778.5 110 / 110 Output Total 550 / 550 700 / 700 50 / 50 Balance 460 / 460 78.5 / 78.5 60 / 60 General: Alert, Cooperative, No apparent distress Lungs: Clear to auscultation, Normal air movement Cardiovascular: Regular rate, Regular Rhythm Abdomen: Soft, Non Tender, Non-Distended Skin: No rashes Microbiology Past 72 Hours 12/20/19 16:00 Blood Culture (Wb) - Anticubital Left Blood Culture - Final Staphylococcus aureus 12/23/19 06:22 Blood Culture (Wb) - Right Hand Blood Culture - Preliminary No growth in 48 hours. 12/22/19 14:54 Blood Culture (Wb) - Right Hand Blood Culture - Preliminary No growth in 48 hours. 12/21/19 16:52 Blood Culture (Wb) - Anticubital Left Blood Culture - Preliminary No growth in 48 hours. Current Medications Acetaminophen (Tylenol) 650 mg PO Q6H PRN PRN PRN Reason: Pain Score 1-10/Temp > 100.7 F Last Admin: 12/24/19 14:52 Dose: 650 mg Documented by: Aspirin (Aspirin, Baby) 81 mg PO DAILY [facility] Last Admin: 12/25/19 10:35 Dose: 81 mg Documented by: Calamine/Phenol (Calmoseptine Ointment) 1 applic TOPICAL BID [facility]; Protocol Last Admin: 12/25/19 10:35 Dose: 1 applicatio Documented by: Dextrose (D50w Syringe) 0 gm IV X1 PRN; Protocol PRN Reason: Hypoglycemia Enoxaparin Sodium (Lovenox) 40 mg SC DAILY [facility] Last Admin: 12/25/19 10:34 Dose: 40 mg Documented by: Glucagon () 1 mg IM .X1 PRN PRN Reason: Hypoglycemia Sodium Chloride () 250 mls @ 15 mls/hr IV .[id number] PRN PRN Reason: Saline Flush Last Infusion: 12/24/19 23:23 Dose: 0 mls/hr Documented by: Sodium Chloride () 250 mls @ 15 mls/hr IV .[id number] PRN PRN Reason: Additional IVPB Infusion Cefazolin Sodium 2 gm/ Sodium (Chloride) 110 mls @ 150 mls/hr IV Q8 JUSTIN Last Infusion: 12/25/19 06:17 Dose: Infused Documented by: Ondansetron HCl (Zofran) 4 mg IV Q8H PRN PRN PRN Reason: NAUSEA/VOMITING Oxycodone HCl (Oxyir) 10 mg PO Q4H PRN PRN PRN Reason: Pain Score 4-10/10 Last Admin: 12/24/19 20:31 Dose: 10 mg Documented by: Senna (Senokot) 1 tablet PO BID PRN PRN PRN Reason: Constipation Last Admin: 12/24/19 14:52 Dose: 1 tablet Documented by: Sodium Chloride () 10 - 40 ml IV UD PRN PRN Reason: SALINE FLUSH Last Admin: 12/25/19 05:19 Dose: 10 ml Documented by: Medical Necessity - Tobacco Use Smoking Status: Never smoker Tobacco Use: Non-smoker Route of nutrition/ use of supplements: [] Nutritional Intake: [] IV Site: [] Gonsalves Catheter: [] - Assessment/Plan Antibiotics: [] Assessment/Plan: [] Active and Suspected Problems Pneumonia (Acute) Leukocytosis (Acute) MSSA bacteremia. Now with humerus fracture, had been concerned for possible septic arthritis in that shoulder given his bacteremia and pain. TTE with no veg. Feeling better overall. Cont cefazolin. Seen by ortho, MRI with possible pathologic fracture. No malignancy seen on screening CT. May need DAMION if bcx do not clear. Repeat bcx rapidly cleared. Ok for discharge on 2 weeks of linezolid. Will follow as needed, d/w hospitalist over the weekend re:dispo plans
[2019-12-25 16:08] LABS: Albumin 2.3 g/dL (2.9-4.4); Alpha-1-Globulins 0.5 g/dL (0.0-0.4); Alpha-2-Globulins 1.2 g/dL (0.4-1.0); Free Lambda Light Chains 25.5 mg/L (5.7-26.3); Gamma Globulin 0.8 g/dL (0.4-1.8); Immunoglobulin A 169 mg/dL (61-437); Immunoglobulin G 915 mg/dL (603-1613); Immunoglobulin M 28 mg/dL (15-143); PROEL- TOTAL PROTEIN 5.5 g/dL (6.0-8.5)
== END 2019-12-25 10:58 | disposition skilled nursing facility (03) | DRG 871 ==
LOC: ED 23:31 → PCU 12-19 01:02
PROVIDERS: Hospitalist; Admitting Provider Student in an Organized Health Care Education/Training Program; Emergency Provider Emergency Medicine; Referring Provider Student in an Organized Health Care Education/Training Program; Visit Provider Family Medicine
DX: A41.01 Sepsis due to Methicillin susceptible Staphylococcus aureus (principal); J15.211 Pneumonia due to Methicillin susceptible Staphylococcus aureus; C79.51 Secondary malignant neoplasm of bone; M84.521A Pathological fracture in neoplastic disease, right humerus, initial encounter for fracture; C61 Malignant neoplasm of prostate; E87.6 Hypokalemia; Z79.82 Long term (current) use of aspirin; Z79.899 Other long term (current) drug therapy
CPT/HCPCS: 36415; 70450; 71045; 71260; 73060; 73070; 73220; 74177; 80048; 80053; 81001; 82784; 83605; 83735; 83883; 84153; 84165; 84484; 85025; 86334; 87040; 87077; 87149; 87186; 87635; 93005; 93306; 94762; 94799; 97110; 97162; 97166; 97530; 97535; 99285; A9575; J7030; J7040; J7050; Q9967; A4216; U0003

== ENCOUNTER → 2020-01-12 08:59 | Outpatient (CLI) | payer MEDICARE, OTHER, SELFPAY ==
[2020-01-03 09:47] VITALS: BMI 27.4
--- NOTE | 2020-01-12 08:59 | NM_ITS ---
CLINICAL: 79-year-old male with reported history of carcinoma of the prostate with apparent known right humerus and ankle fractures. WHOLE BODY 99m Tc MDP RADIONUCLIDE BONE SCINTIGRAPHY COMPARISON: CT of the chest, abdomen and pelvis reports 12/21/2019, MRI of the right humerus report 12/21/2019 FINDINGS: Following the intravenous administration of 26.0 mCi of 99m Tc MDP, whole body bone images reveal: 1. Increased radiopharmaceutical concentration is identified in the right mid humeral and distal right tibial diaphysis. 2. Facilitated tracer concentration is observed in the glenohumeral, sternoclavicular and acromioclavicular compartments of both shoulders, left hand, bilateral elbows, the left ankle. 3. The remaining skeletal structures are scintigraphically unremarkable with normal-appearing renal images and urinary bladder activity identified. Significant urine contamination artifact is defined. An increase in uptake is noted in the lesser trochanteric aspect of the left proximal femur most consistent with periostitis and/or trochanteric bursitis. NM/Bone Scan Whole Body IMPRESSION: 1. The increase in radiopharmaceutical concentration observed in the right mid humeral and distal right tibial diaphysis is consistent with trauma-fracture. 2. 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 Electronically Signed: Mike Steele DO at 23:21 EDT Tel , Service support ,
== END ==
PROVIDERS: Referring Provider Internal Medicine Hematology & Oncology; Visit Provider Internal Medicine Hematology & Oncology
DX: C61 Malignant neoplasm of prostate (principal); C79.51 Secondary malignant neoplasm of bone
CPT/HCPCS: 78306

== ENCOUNTER → 2020-01-19 08:56 | Outpatient (CLI) | payer MEDICARE, OTHER, SELFPAY ==
[2020-01-17 10:06] VITALS: BMI 26.1
[2020-01-19] VITALS (10 sets, daily range): BP systolic 108–145; BP diastolic 57–85; PULSE 56–84; RESP 14–21; TEMP 36.9; O2SAT 95–100; BMI 26.6
--- NOTE | 2020-01-19 | ASPIGT_PTH ---
PATIENT: RADHA MORENO LOC: CT U#:[id number] AGE/SX: 85/M ROOM: RE01/19/[address]: Dr. Jatinder Hinds MD : 1940 BED: DIS: SPEC #: [id number] RECD: 01/19/20 13:45 STATUS: ROSINA LOLITA #: [id number] GAIL: 01/19/20 00:[address]: Jatinder Hinds DEPT: SURGICAL PATHOLOGY RECD BY: Paul Saleh ENTERED: 01/19/20 13:45 SP TYPE: ASP RAD GERMAINE DR: No Primary Care Phys Tissues: Humerus, NOS Procedures: FNA Specimen Adequacy Special Stain Group II Surgery Specimen Level IV Imprint (control) HEADER OPERATION: CT-guided biopsy right humerus PRE-OP DIAGNOSIS: Pathologic fracture TISSUE SUBMITTED: Right proximal humerus mass 18-gauge core x7 MICROSCOPIC DIAGNOSIS Right proximal humerus mass, CT-guided biopsy: Fibrocartilaginous tissue with mild atypia. No evidence of metastatic carcinoma. AM:chris 01/22/20 COMMENT The specimen is evaluated at the time of biopsy by Dr. Mariscal. Immediate Evaluation: Pass 1 - Blood. No evidence of malignancy. Pass 2 - Blood. No evidence of malignancy. Case has been reviewed in consultation with Dr. Soto who concurs with the above diagnosis. IDC:SJ MICROSCOPIC DESCRIPTION Slides are reviewed. GROSS DESCRIPTION Received is one container labeled with the patient's name and designated right humerus. The specimen consists of multiple irregular fragments of light posey soft tissue that in aggregate measure 0.7 x 0.2 x 0.1 cm. The specimen is totally submitted in one cassette. Three touch imprints on pass 1 and two touch imprints on pass 2 are prepared at the time of core biopsy. / AM:chris 01/19/20 TC:5 CPT: 99011, 68845 x2, 80561
--- NOTE | 2020-01-19 08:57 | CT_ITS ---
PROCEDURE: CT GUIDED biopsy of the proximal humeral pathological fracture. DATE: 01/19/2020. INDICATION: Male, 80 years old. Pathological fracture of the proximal right humerus. PHYSICIAN: Charles Barnes M.D. RADIATION DOSAGE (If Supplied By Facility): CTDIvol = ( 18.7 ) mGy, DLP = ( 407.52 ) mGycm. Individualized dose optimization technique were utilized. PROCEDURE: The risks, benefits, and alternatives to the procedure were explained to the patient. The specific risk of hemorrhage requiring further treatment or intervention was detailed and accepted. Follow-up instructions were discussed with the patient as well. Written informed consent was obtained. The patient was brought into the CT suite and placed in the supine position. . An appropriate entry site was identified. The overlying skin was prepped and draped in the usual sterile fashion. 1% lidocaine was administered subcutaneously for local anesthesia. Conscious sedation was performed. The patient received 1 mg of VERSED and 25 mcg of FENTANYL intravenously. Conscious sedation was started at 10:22 AM and terminated at 10:43 AM. The patient was monitored independently by the department nurse. Under CT guidance, a total of 7 passes were performed utilizing a 18-gauge core biopsy needle. The specimens were then placed in the appropriate fluid and transported to the laboratory for analysis. Hemostasis was obtained. The patient tolerated the procedure well without immediate complications. CT/Biopsy/Inj or Needle Placement IMPRESSION: Successful CT guided biopsy of the proximal right humeral shaft pathological fracture, as described above. Conscious sedation protocol was followed. Electronically Signed: Charles Barnes, at 11:13 EDT , Service support ,
[2020-01-19 09:30] LABS: Hematocrit 33.1 % (40-54); Hemoglobin 10.9 g/dL (13.0-16.5); Mean Corp Hgb Conc 32.9 g/dL (32-36); Mean Corpuscular Hgb 27.9 pg (27.0-32.0); Mean Corpuscular Volume 84.7 fL (80-94); Mean Platelet Vol. 8.9 fl (6.2-12.0); Platelet Count 337 K/mm3 (150-450); RBC Distribution Width CV 14.2 % (11.6-14.6); RBC Distribution Width SD 42.4 fl (35.1-43.9); Red Blood Count 3.91 M/mm3 (4.6-6.2); White Blood Count 6.7 K/mm3 (4.4-11.0)
[2020-01-19 09:38] LABS: International Normalized Ratio 1.1; Prothrombin Time (Protime)PT. 13.5 SECONDS (11.7-14.9)
[2020-01-19 09:39] LABS: Partial Thromboplast Time 32.7 Seconds (24.1-36.2)
[2020-01-19] MEDS: Midazolam 2 MG/2 ML Syringe IV (10:22)
[2020-01-19] MEDS: fentaNYL 100 MCG/2 ML Ampul IV (10:22)
== END ==
PROVIDERS: Referring Provider Internal Medicine Hematology & Oncology; Visit Provider Internal Medicine Hematology & Oncology
DX: C61 Malignant neoplasm of prostate (principal); C79.51 Secondary malignant neoplasm of bone; M84.421A Pathological fracture, right humerus, initial encounter for fracture
CPT/HCPCS: 20225; 36415; 77012; 85027; 85610; 85730; 88172; 88305; 88313; 99155; 99156; 99157; J7040; A4216

== ENCOUNTER → 2020-02-15 14:43 | Outpatient (CLI) | payer MEDICARE, OTHER, SELFPAY ==
[2020-02-15 13:53] VITALS: BMI 22.9
--- NOTE | 2020-02-15 15:00 | RAD_ITS ---
HISTORY: fall, right hip pain, Hx prostate CA ADDITIONAL HISTORY: None provided. EXAMINATION/TECHNIQUE: XR Hip Unilateral with Pelvis when performed; 2-3 Views Right Number of images including paperwork: 3 COMPARISON: CT 12/21/2019 FINDINGS: BONES: No acute fracture. JOINTS: No subluxation. Mild degenerative changes of the hips. Degenerative changes of the visible spine and sacroiliac joints. SOFT TISSUES: No distinct foreign body. RAD/HIP, UNI W/ Pelvis 2-3 Views IMPRESSION: No acute osseous abnormality. at 0430 Reported and signed by: Monique Junior MD Electronically Signed: Monique Junior MD at 4:30 EDT Tel , Service support ,
== END ==
PROVIDERS: Referring Provider Internal Medicine Hematology & Oncology; Visit Provider Internal Medicine Hematology & Oncology
DX: M25.551 Pain in right hip (principal); C61 Malignant neoplasm of prostate; C79.51 Secondary malignant neoplasm of bone; D64.9 Anemia, unspecified; D72.829 Elevated white blood cell count, unspecified
CPT/HCPCS: 36415; 73502; 80053; 84153; 85025

== ENCOUNTER → 2020-05-15 09:33 | Outpatient (CLI) | payer MEDICARE, OTHER, SELFPAY ==
[2020-03-28 13:03] VITALS: BMI 26.9
--- NOTE | 2020-05-15 09:50 | RAD_ITS ---
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 EXAMINATION/TECHNIQUE: XR Humerus Min 2 Views Right Number of images including paperwork: 4 COMPARISON: 12/20/2019 FINDINGS: BONES: Callus formation is present about angulated fracture of the right mid humeral diaphysis. Distinct fracture line not visible. JOINTS: No subluxation. Degenerative changes of the acromioclavicular and glenohumeral joints. SOFT TISSUES: No distinct foreign body. RAD/Humerus min 2 Views IMPRESSION: Interval healing of right mid humerus fracture. Degenerative changes. at 0747 Reported and signed by: Monique Junior MD Electronically Signed: Monique Junior MD at 7:47 EST Tel , Service support ,
== END ==
DX: M84.521D Pathological fracture in neoplastic disease, right humerus, subsequent encounter for fracture with routine healing (principal)
CPT/HCPCS: 73060

== ENCOUNTER → 2020-07-17 | Outpatient (CLI) | payer MEDICARE, OTHER, SELFPAY ==
[2020-07-10 13:58] VITALS: BMI 28.3
== END | disposition home or self-care (01) ==
LOC: LABSPEC 12:51
PROVIDERS: Referring Provider Podiatrist; Visit Provider Podiatrist
DX: L97.422 Non-pressure chronic ulcer of left heel and midfoot with fat layer exposed (principal); L89.609 Pressure ulcer of unspecified heel, unspecified stage
CPT/HCPCS: 87070; 87077; 87186; 87205

== ENCOUNTER → 2023-06-03 | Outpatient (CLI) | payer MEDICARE, OTHER, SELFPAY ==
--- NOTE | 2023-06-03 12:45 | RAD_ITS ---
STUDY: X-RAY - PELVIS AND LEFT HIP REASON FOR EXAM: Male, 83 years old. Increased pain. History of prostatic metastases. TECHNIQUE: 3 views of the pelvis and hip. COMPARISON: February 15, 2020 x-rays and bone scan of January 12, 2020. FINDINGS: Normal bowel gas pattern with air seen to the rectosigmoid. Moderate amount of feces in the colon. Phleboliths. Osteopenia. Mild arthrosis of both sacroiliac joints. Mild arthrosis of the symphysis pubis. Mild arthrosis of both hips. RAD/HIP, UNI W/ Pelvis 2-3 Views IMPRESSION: Stable osteopenia with osteoarthritic changes. No sclerotic or lytic lesions identified. No acute abnormality. Electronically Signed: Evelio Johnson MD at 13:13 EST ,
--- OUTSIDE RECORDS SUMMARY | 2023-06-03 13:09 | XMS RPT_ITS | CCD ---
Author Name Unknown Address [address] [place] [address] Organization [facility] Care Team Providers Care Wet End Tester Name Role Phone LAI BYRD MD Primary Care Unavailable LATOUF, LAI GERARDO Consulting Unavailable LATOUF, LAI GERARDO Attending Unavailable LATOUF, LAI GERARDO Admitting Unavailable PROVIDER, UNKNOWN Consulting Unavailable PROVIDER, UNKNOWN Consulting Unavailable PROVIDER, UNKNOWN Consulting Unavailable LATOUF, LAI GERARDO Primary Care Unavailable LATOUF, LAI GERARDO Attending Unavailable LATOUF, LAI GERARDO Admitting Unavailable CEBUL, JOSESITO Consulting Unavailable PROVIDER, UNKNOWN Consulting Unavailable LATOUF, LAI GERARDO Primary Care Unavailable LATOUF, LAI GERARDO Consulting Unavailable LATOUF, LAI GERARDO Attending Unavailable LATOUF, LAI GERARDO Admitting Unavailable PROVIDER, UNKNOWN Consulting Unavailable PROVIDER, UNKNOWN Consulting Unavailable PROVIDER, UNKNOWN Consulting Unavailable LATOUF, LAI GERARDO Consulting Unavailable LATOUF, LAI GERARDO Attending Unavailable LATOUF, LAI GERARDO Referring Unavailable LATOUF, LAI GERARDO Admitting Unavailable LATOUF, LAI GERARDO Primary Care Unavailable PROVIDER, UNKNOWN Consulting Unavailable PROVIDER, UNKNOWN Consulting Unavailable PROVIDER, UNKNOWN Consulting Unavailable Problems Active Problems Problem Classification Problem Date Documented Da te Episodic/Chronic Delirium, dementia, and amnestic and other cognitive disorders (1 source) Unspecified dementia without behavioral disturbance; Translations: [Unspecified dementia, unspecified severity, without behavioral disturbance, psychotic disturbance, mood disturbance, and anxiety] Onset: 07-01-2022 Chronic Skin and subcutaneous tissue infections (3 sources) Cellulitis, unspecified; Translations: [Cellulitis, unspecified] Onset: 08-13-2022 Episodic Past or Other Problems Problem Classification Problem Date Documented Da te Episodic/Chronic Deficiency and other anemia (1 source) Anemia, unspecified; Translations: [Anemia, unspecified] Onset: 04-24-2022 Episodic Other connective tissue disease (1 source) Muscle weakness (generalized); Translations: [Muscle weakness (generalized)] Onset: 04-24-2022 Episodic Results Test Name Value Interpretation Reference Range Facil ity Encounters Encounter Date Encounter Type Care Provider Facility Start: 08-13-2022 End: 08-16-2022 Evaluation and management of inpatient LAI BYRD [facility] Start: 07-01-2022 End: 07-01-2022 ambulatory LAI BYRD [facility] Start: 04-24-2022 ambulatory LAI BYRD [facility] Start: 09-24-2021 End: 09-24-2021 ambulatory LAI GERARDO [facility] Procedures Date Procedure Procedure Detail Performing Clinician Start: 08-14-2022 Urinalysis LAI ESPINO Payers Date Payer Category Payer Unknown [id number] 1940 Unknown [id number] 1940 Unknown [id number] 1940 Unknown [id number] Medicare [id number] Private Health Insurance [id number] History and physical note 09-17-2022 Note Date & Type Note Facility 09-17-2022 Note [facility] DISCHARGE SUMMARY NAME ACCOUNT SEX AGE ADMIT DISCHARGE PT MED. RECORD# NUMBER DATE DATE TYPE RADHA MORENO [id number] M 82 08/13/22 08/16/22 1 [id number] ROOM: 309 DATE OF : 1940 ATTENDING PHYSICIAN: Lai Byrd FINAL DIAGNOSES: 1. Bilateral lower extremity cellulitis. 2. Acute kidney injury/dehydration. 3. Severe environmental allergies. HISTORY OF PRESENT ILLNESS: On the day of discharge, the patient was feeling good. He denies any chest pain. No shortness of breath. PHYSICAL EXAMINATION: VITALS SIGNS: Blood pressure 157/73, heart rate 64, respiratory rate 16, temperature 97.7, oxygen saturation 98% on room air. SKIN: Warm and dry. Lower extremity skin is erythematous, and improved since the day before and the edema has improved. DIAGNOSTIC DATA: On the day of discharge, WBC is 6.2, hemoglobin 12.9, hematocrit 37.2, and platelet count 286,000. Neutrophils 51.3%, lymphocytes 22.8%, eosinophils 14.7%. Sodium is 138, potassium 4.0, BUN 11, creatinine 1.14, and glucose 96. Alkaline phosphatase is 58, albumin 3.3, total bilirubin 0.5. HOSPITAL COURSE: 1. Bilateral lower extremity cellulitis. The patient was at the credit administrator office, Dr. Carlson. She noticed significant erythema involving both lower extremities up to the knees, which is unusual for the patient, and the patient was sent to the emergency room for evaluation. He was diagnosed with severe cellulitis involving both lower extremities. He was admitted to a medical surgical floor. He was started on Zosyn, and he gradually improved with the redness fading, but he is known as having severe environmental allergies and he usually has some mild erythema. He was resumed on his usual home Zyrtec medication, and he was discharged home in a stable condition to be followed as an outpatient. 2. Acute kidney injury with dehydration. Initial BUN was 16 with a creatinine of 1.40. He received IV fluids with normalization of the renal function. He was encouraged to increased p.o. fluid intake and periodically we will check laboratories as an outpatient. 3. Severe dementia, a complicating factor. The patient did not want to be on any medications for dementia at this time. 4. Above was discussed with the patient and his at the bedside in details. All questions were answered, and they expressed understanding of the plan of care. He was discharged home in a stable condition to be followed as an outpatient. Page 1 of 2 RADHA MORENO Discharge Summary RADHA MORENO : 1940 MEDICATIONS ON DISCHARGE: (1) Augmentin 400 mg t.i.d. for 5 days. (2) Aspirin, enteric-coated 81 mg daily. (3) Famotidine 20 mg twice a day. (4) Zyrtec 10 mg daily. DISCHARGE INSTRUCTIONS/PLAN: 1. Destination: Home. 2. Activity: No restrictions. 3. Diet: Regular, no added salt. 4. Followup with Dr. Byrd in 1 to 2 weeks and [facility] to followup at home. The phone number is [phone]. Return to the emergency room if temperature is 100.4 or higher. Dictated By: Lai Byrd MD 09/12/22 22:02 JOB #: [id number] Transcribed By: am 09/14/22 10:21 Electronically signed by: Lai Byrd M.D. 09/17/22 08:42 Page 2 of 2 RADHA MORENO Discharge Summary [facility] Clinical Note 08-16-2022 Note Date & Type Note Facility 08-16-2022 Note [facility] PROGRESS NOTE NAME ACCOUNT SEX AGE ADMIT DISCHARGE PT MED. RECORD# NUMBER DATE DATE TYPE RADHA MORENO [id number] M 82 08/13/22 1 L [id number] ROOM: [facility] DATE OF : 1940 DICTATING PHYSICIAN: Lai Byrd DATE OF SERVICE: August 15, 2022 SUBJECTIVE: The patient is feeling better. He denies any discomfort. The lower extremity cellulitis has improved, and he mentioned that it is not pruritic. He continues to have erythema involving both lower extremities up to the knees. OBJECTIVE: GENERAL: No acute distress, sitting in the recliner chair comfortably. VITAL SIGNS: Blood pressure is 149/75, heart rate 60, respiratory rate 16, temperature 97.5, and oxygen saturation 97% on room air. SKIN: Skin is warm and dry. Lower extremity skin is erythematous, persistent since yesterday. The edema has improved. DIAGNOSTIC DATA: WBC is 5.7, hemoglobin 11.6, hematocrit 33.2, and platelet count 248,000. Sodium is 140, potassium 3.8, BUN 14, creatinine 1.13 and glucose 111. Albumin is 2.8. ASSESSMENT/PLAN: 1. Severe cellulitis involving both lower extremities up to the knees. We will continue the current treatment with Zosyn, and we will monitor progress over the next 24 hours. 2. Acute kidney injury secondary to dehydration, resolved with IV hydration. IV fluids were discontinued yesterday. 3. Severe environmental allergies. I am wondering if that is playing a role in the patient's lower extremity erythema. We will start the patient on Zyrtec 10 mg daily. 4. Severe dementia with Mini Mental Status Examination score of 13. We will monitor the patient. Dictated By: Lai Byrd MD 08/15/22 08:27 JOB #: [id number] Transcribed By: billy 08/15/22 09:16 Electronically signed by: Lai Byrd M.D. 08/16/22 11:29 Page 1 of 1 RADHA MORENO Progress Note [facility] History and physical note 08-15-2022 Note Date & Type Note Facility 08-15-2022 [facility] HISTORY & PHYSICAL NAME ACCOUNT SEX AGE ADMIT DISCHARGE PT MED. RECORD# NUMBER DATE DATE TYPE RADHA MORENO [id number] M 82 08/13/22 1 L [id number] ROOM: 309 DATE OF : [birth year] DICTATING PHYSICIAN: Lai Byrd TIME SEEN: 9:30 a.m. CHIEF COMPLAINT: Lower extremity edema and erythema. HISTORY OF PRESENT ILLNESS: The patient is a pleasant 82-year-old gentleman with past medical history significant for dementia, anemia, and a previous history for prostate cancer, who was in his usual state of health until yesterday he went to Dr. Carlson, his credit administrator. She noted significant erythema involving both lower extremities up to the knees, and he was sent to the emergency room for evaluation. The patient himself noticed increasing erythema over the last few days. He denies any other complaints. PAST MEDICAL HISTORY: (1) Anemia. (2) Constipation. (3) Dementia which was gradually getting worse. (4) MMSE was done on July 14, 2002, and it was 13. The patient previously was on donepezil, but he discontinued donepezil, and he and his are not interested in pursuing any further treatment at this time. (5) Generalized weakness. (6) History of rheumatic fever. (7) History of prostate cancer. PAST SURGICAL HISTORY: Inguinal hernia repair. MEDICATIONS: Current medications at home: (1) Triamcinolone acetonide 0.1% topical ointment twice a day as needed. (2) Aspirin 81 mg enteric-coated daily. (3) Zyrtec 10 mg daily. (4) Sennosides 8.6 mg prn. (5) Vitamin D 2000 units daily. (6) Probiotic daily. ALLERGIES: No known drug allergies. FAMILY HISTORY: Father from heart disease. Mother from thyroid cancer. He has two brothers and a sister with heart disease. SOCIAL HISTORY: The patient is . He has two children. He never smoked. He does not drink any alcohol. REVIEW OF SYSTEMS: The patient denies any dizziness, lightheadedness or headaches. He denies any chest pain or shortness of breath. He denies any or GI symptoms. He noticed increasing lower extremity edema and erythema up to the knees. He was alert. Page 1 of 3 RADHA MORENO History & Physical RADHA MORENO :1940 PHYSICAL EXAMINATION GENERAL APPEARANCE: The patient was sitting in a recliner chair comfortably in no acute distress. Well-developed, well-nourished. VITAL SIGNS: Blood pressure 119/72, heart rate 56, respiratory rate 16, temperature 98.1, oxygen saturation 96% on room air. SKIN: Warm and dry. Lower extremity skin erythematous, edematous up to the knees. NECK: Supple. No nodes, no masses, no JVD, no carotid bruits, no thyroid enlargement. LUNGS: Symmetrical equal lung expansion, clear to auscultation. Respiratory effort normal. HEART: Regular rate and rhythm. ABDOMEN: Soft, nontender. NEUROLOGIC: The patient was alert. DIAGNOSTIC DATA: This morning WBC is 5.4, hemoglobin 12.1, hematocrit 35.7, platelet count 258,000. Sodium 139, potassium 4.0, BUN 13, creatinine 1.12, glucose 98. Laboratories from the emergency room yesterday: WBC is 6.3, hemoglobin 13.3, hematocrit 39.1, platelet count 320. Sodium 139, potassium 4.2, BUN 16, creatinine 1.40, calcium 10.2, glucose 105, albumin 3.7, total bilirubin 0.4, lactate level 1.0, troponin negative. BNP 368. Urinalysis positive for protein, otherwise unremarkable. COVID-19 swab negative. IMPRESSION/PLAN: 1. Severe cellulitis involving both lower extremities up to the knees. 2. In the emergency room, the patient received Zosyn and vancomycin. I continued patient's Zosyn, especially that his erythema has improved since yesterday. I will monitor progress. 3. Acute kidney injury likely secondary to dehydration. The patient was hydrated overnight, and the BUN and creatinine normalized and IV fluids were discontinued earlier today. We will recheck laboratories in the morning. 4. Severe dementia with Mini-Mental Status Examination of 13. The patient is not interested in any treatment at this time. We will monitor the patient. 5. The rest of the medical problems are stable at this time. We will monitor the patient. 6. Above was discussed with patient in detail, all questions answered, and he expressed understanding of the plan of care. I also discussed the case with nursing staff. Page 2 of 3 RADHA MORENO History & Physical RADHA MORENO :1940 Dictated By: Lai Byrd MD 08/14/22 21:25 JOB #: [id number] Transcribed By: cynthia 08/14/22 22:39 Electronically signed by: Lai Byrd M.D. 08/15/22 08:45 Update to H&P: [ ] No changes: I have examined the patient and reviewed the H&P and there are no changes. [ ] As previously dictated with the following changes: (more content not included)... [facility] Summary Purpose Family History No Family History Records Found Advance Directives No Advanced Directives Records Found Additional Source Comments (unrecognized sect ion and content) No Status Records Found INFORMATION SOURCE (unrecogn ized section and content) FOR RECORDS PERTAINING TO PATIENTS WHO ARE OR HAVE BEEN ENROLLED IN A CHEMICAL DEPENDENCY/SUBSTANCEABUSE PROGRAM, SOME INFORMATION MAY BE OMITTED. This clinical summary was aggregated from multiple sources. Caution should be exercised in using it in the provision of clinical care. This summary normalizes information from multiple sources, and as a consequence, information in this document may materially change the coding, format and clinical context of patient data. In addition, data may be omitted in some cases. CLINICAL DECISIONS SHOULD BE BASED ON THE PRIMARY CLINICAL RECORDS. [facility] [employer] [facility]. provides no warranty or guarantee of the accuracy or completeness of information in this document.
== END | disposition home or self-care (01) ==
LOC: RAD 12:43
PROVIDERS: Referring Provider Internal Medicine Hematology & Oncology; Visit Provider Internal Medicine Hematology & Oncology
DX: C61 Malignant neoplasm of prostate (principal); C79.51 Secondary malignant neoplasm of bone; R52 Pain, unspecified
CPT/HCPCS: 73502